=== PATIENT | male | born 1940 | race Caucasian/White ===

== ENCOUNTER 2017-12-31 16:38 | Observation (INO) | payer OTHER ==
[2017-12-31 17:43] LABS: Absolute Lymphocytes (CBC) 0.4 K/uL (0.7-4.9); Absolute Monocytes 0.4 K/uL (0.1-1.3); Absolute Neutrophil 14.3 K/uL (1.8-8.0); Basophils % 0.3 % (0-1.3); Eosinophils % 0.1 % (0-4.4); Lymphocytes % 2.5 % (15.3-44.8); MCH 29.1 pg (27.0-35.0); MCV 89.2 fL (80-100); MPV 8.8 fL (7.6-11.3); Monocytes % 2.9 % (3.3-12.3); RBC Red Blood Cell Count 5.05 M/uL (4.33-5.43)
[2017-12-31 17:50] LABS: Urine Blood 3+ (NEG); Urine Glucose NEGATIVE (NEG); Urine Protein 3+ (NEG); Urine Specific Gravity 1.025 (1.005-1.030); Urine pH 6.5 (5.0-7.0)
[2017-12-31 18:07] LABS: Blood Morphology Comment NOT SEEN (NOT SEEN); Platelet Estimate ADEQ; Urine White Blood Cell Casts OK
--- NOTE | 2017-12-31 18:21 | RAD REPORT ---
EXAM DESCRIPTION: CT - Stone Protocol - 12/31/2017 5:44 pm CLINICAL HISTORY: Abdominal pain. Right flank pain COMPARISON: May 2017 TECHNIQUE: Computed axial tomography of the abdomen pelvis was obtained without oral or IV contrast. Lack of IV and oral contrast limits evaluation of solid organs, bowel, and vessels. Coronal reformat baldemar images were obtained and reviewed. All CT scans are performed using dose optimization technique as appropriate and may include automated exposure control or mA/KV adjustment according to patient size. FINDINGS: Bilateral hydronephrosis has worsened since the prior exam and is moderate to marked. Bila teral renal cysts are unchanged. The dilatation of the ureters has worsened. The bladder has been res ected. 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 The liver, spleen, pancreas and adrenals appear grossly normal There is no evidence of diverticulitis. Increased density within the appendix probably represents con trast. There is no stranding within the adjacent fat. IMPRESSION: Progression in [id number] bilateral hydroureter and hydronephrosis. The dilated ureters extend through the right anterior abdominal wall into an ileal conduit
[2017-12-31] MEDS ORDERED: MORPHINE 4 MG/ML SYR ONE (18:24)
[2017-12-31] MEDS ORDERED: CEFTRIAXONE/SWI 1gm 1 GM/10 ML SYR ONE (18:25)
[2017-12-31] MEDS ORDERED: ONDANSETRON 4 MG/2 ML VIAL ONE (18:25)
--- NOTE | 2017-12-31 19:18 | ER ---
Nurse's Notes [facility] Name: Len Starkey Age: 77 yrs Sex: Male : 1940 Arrival Date: 12/31/2017 Time: 16:40 Bed External Waiting Private MD: Omega Sparks V Diagnosis: Abdominal pain. Bilateral hydronephrosis. Urinary tract infection Presentation: 12/31 16:43 Presenting complaint: Patient states: I have a urostomsy and I am having abd pain la1 radiating around my right side to my back. Transition of care: patient was not received from another setting of care. Onset of symptoms was December 31, 2017. Care prior to arrival: None. 16:43 Method Of Arrival: Ambulatory la1 16:43 Acuity: DAVID 3 la1 Historical: - Allergies: 16:44 Flagyl; la1 16:44 Gentamicin; la1 16:44 Bactrim; la1 - PSHx: 16:44 urostomy; la1 - Immunization history:: Adult Immunizations up to date. - Social history:: Smoking status: Patient/guardian denies using tobacco. Screenin:30 Abuse screen: Denies threats or abuse. Denies injuries from another. Nutritional jl7 screening: No deficits noted. Tuberculosis screening: No symptoms or risk factors identified. Fall Risk IV access (20 points). Total Andrews Fall Scale indicates No Risk (0-24 pts). Assessment: 17:30 General: Appears in no apparent distress. uncomfortable, Behavior is calm, cooperative, jl7 appropriate for age. Pain: Complains of pain in right lower quadrant Pain radiates to posterior aspect of right lateral abdomen Pain currently is 8 out of 10 on a pain scale. Pain began 3 hours ago. Is intermittent. Neuro: Level of Consciousness is awake, alert, obeys commands, Oriented to person, place, time, situation. Cardiovascular: Patient's skin is warm and dry. Respiratory: Airway is patent Respiratory effort is even, unlabored, Respiratory pattern is regular, symmetrical. GI: Bowel sounds present X 4 quads. Abd is soft and non tender X 4 quads. : Urine is cloudy, blood tinged. EENT: No signs and/or symptoms were reported regarding the EENT system. Derm: Skin is pink, warm \T\ dry. 18:00 Reassessment: Pt requesting pain meds, provider notified, see MAR for orders. jl7 18:52 Reassessment: MD Hebert ID #[id number]. jl7 19:13 Reassessment: Dr. Sparks at bedside discussing plan of care with patient. ea 19:21 General: Appears in no apparent distress. Behavior is calm, cooperative, appropriate ea for age. Pain: Complains of pain in right lower quadrant Pain currently is 2 out of 10 on a pain scale. Neuro: Level of Consciousness is awake, alert, obeys commands, Oriented to person, place, time, situation. Cardiovascular: Patient's skin is warm and dry. Respiratory: Airway is patent Respiratory effort is even, unlabored, Respiratory pattern is regular, symmetrical, Breath sounds are clear bilaterally. GI: Bowel sounds present X 4 quads. Abd is soft and non tender X 4 quads. Derm: Skin is pink, warm \T\ dry. 20:00 Reassessment: Patient and/or family updated on plan of care and expected duration. Pain ea level reassessed. Patient is alert, oriented x 3, equal unlabored respirations, skin warm/dry/pink. 21:00 Reassessment: Patient and/or family updated on plan of care and expected duration. Pain ea level reassessed. Patient is alert, oriented x 3, equal unlabored respirations, skin warm/dry/pink. 22:10 Reassessment: Patient and/or family updated on plan of care and expected duration. Pain ea level reassessed. Patient is alert, oriented x 3, equal unlabored respirations, skin warm/dry/pink. Vital Signs: 16:44 BP 140 / 78; Pulse 58; Resp 16; Temp 97.4(TE); Pulse Ox 100% on R/A; Weight 73.94 kg; la1 Height 5 ft. 10 in. (177.80 cm); 17:30 BP 156 / 87; Pulse 66; Resp 18 S; Pulse Ox 100% on R/A; jl7 18:29 BP 137 / 92; Pulse 56; Resp 16 S; Pulse Ox 97% on R/A; jl7 18:53 BP 137 / 92; Pulse 68; Resp 16 S; Pulse Ox 99% on R/A; jl7 19:15 BP 140 / 68; Pulse 70; Resp 18; Pulse Ox 99% ; ea 20:55 BP 138 / 60; Pulse 70; Resp 18 S; Pulse Ox 99% ; ea 21:15 BP 140 / 68; Pulse 60; Resp 18 S; Pulse Ox 98% on R/A; Pain 0/10; ea 22:00 BP 132 / 70; Pulse 60; Resp 18 S; Pulse Ox 99% on R/A; ea 16:44 Body Mass Index 23.39 (73.94 kg, 177.80 cm) la1 ED Course: 16:40 Patient arrived in ED. as 16:40 Omega Sparks MD is Private Physician. as 16:41 Brian Robledo MD is Attending Physician. kdr 16:43 Triage completed. la1 16:45 Arm band placed on left wrist. la1 16:49 Sherrell Shin, TAYLOR is Primary Nurse. jl7 17:30 Patient has correct armband on for positive identification. Bed in low position. Call jl7 light in reach. Side rails up X 1. Pulse ox on. NIBP on. Warm blanket given. 17:30 Inserted saline lock: 20 gauge in right antecubital area, using aseptic technique. jl7 Blood collected. 17:44 CT Stone Protocol In Process Unspecified. EDMS 17:44 CT completed. Patient tolerated procedure well. Patient moved back from CT. bq 19:01 Attending Physician role handed off by Brian Robledo MD pkl 19:01 Jeffrey Burrell MD is Attending Physician. pkl 19:15 Omega Sparks MD is Hospitalizing Provider. pkl 21:30 No provider procedures requiring assistance completed. Patient admitted, IV remains in ea place. Administered Medications: 18:03 Drug: Zofran 4 mg Route: IVP; Site: right antecubital; jl7 19:24 Follow up: Response: No adverse reaction ea 18:05 Drug: Rocephin - (cefTRIAXone) 1 grams Route: IVPB; Infused Over: 30 mins; Site: right jl7 antecubital; 04 01:00 Follow up: Response: No adverse reaction ea 01:11 Follow up: Response: No adverse reaction; IV Status: Completed infusion ea 04 18:10 Drug: morphine 4 mg Route: IVP; Site: right antecubital; jl7 19:24 Follow up: Response: Marked relief of symptoms ea Outcome: 19:18 Decision to Hospitalize by Provider. pkl 21:30 Admitted to Med/surg accompanied by tech, via wheelchair, room 414, Report called to ea receiving nurse 21:30 Condition: stable 22:15 Patient left the ED. ea Signatures: Dispatcher [employer] EDMS Jeffrey Burrell MD MD pkl Rittger, Kevin, MD MD kdr Quilty, Betty bq Martinez, Amelia as Attema, Lee RN RN la1 Sherrell Shin RN RN jl7 Tara Bonilla RN RN alexa Corrections: (The following items were deleted from the chart) 0402 04:04 01:13 Patient left the ED. alexa ea
--- NOTE | 2017-12-31 19:18 | EDPHYS ---
Physician Documentation [facility] Name: Len Starkey Age: 77 yrs Sex: Male : 1940 Arrival Date: 12/31/2017 Time: 16:40 Bed External Waiting Private MD: Omega Sparks V ED Physician Jeffrey Burrell HPI: 12/31 17:14 This 77 yrs old Male presents to ER via Ambulatory with complaints of kdr Abdominal Pain. 17:14 The patient presents with abdominal pain Right Lower quadrant and right flank radiating kdr directly back to his back. 17:17 Onset: The symptoms/episode began/occurred today, 3 hour(s) ago. The symptoms radiate kdr to right back. Associated signs and symptoms: Pertinent positives: nausea and vomiting, Became diaphoretic and then vomited and felt better. The patient does not specifically link the right sided pain to this n/v, Pertinent negatives: shortness of breath. The symptoms are described as achy, crampy, dull, vague, waxing/waning, has lasted longer today than ususal. Modifying factors: The symptoms are alleviated by nothing, the symptoms are aggravated by nothing. Severity of pain: At its worst the pain was mild moderate just prior to arrival, in the emergency department the pain is unchanged. The patient has not experienced similar symptoms in the past. The patient has been recently seen by a physician: Dr. Sparks Was given muscle relaxers but these have not had any effect on his discomfort. Historical: - Allergies: 16:44 Flagyl; la1 16:44 Gentamicin; la1 16:44 Bactrim; la1 - PSHx: 16:44 urostomy; la1 - Immunization history:: Adult Immunizations up to date. - Social history:: Smoking status: Patient/guardian denies using tobacco. ROS: 17:17 Constitutional: Negative for fever, chills, and weight loss, Eyes: Negative for injury, kdr pain, redness, and discharge, ENT: Negative for injury, pain, and discharge, Neck: Negative for injury, pain, and swelling, Cardiovascular: Negative for chest pain, palpitations, and edema, Respiratory: Negative for shortness of breath, cough, wheezing, and pleuritic chest pain, Back: Negative for injury and pain, : Negative for injury, bleeding, discharge, and swelling, MS/Extremity: Negative for injury and deformity, Skin: Negative for injury, rash, and discoloration, Neuro: Negative for headache, weakness, numbness, tingling, and seizure activity. Psych: Negative for depression, anxiety, suicide ideation, homicidal ideation, and hallucinations, Allergy/Immunology: Negative for hives, rash, and allergies, Endocrine: Negative for neck swelling, polydipsia, polyuria, polyphagia, and marked weight changes, Hematologic/Lymphatic: Negative for swollen nodes, abnormal bleeding, and unusual bruising. 17:17 Abdomen/GI: Positive for Negative for diarrhea, constipation, abdominal cramps, abdominal distension, anorexia, dysphagia, hematemesis, black/tarry stool, rectal pain, rectal bleeding, bowel incontinence. Exam: 17:17 Constitutional: This is a well developed, well nourished patient who is awake, alert, kdr and in no acute distress. Head/Face: Normocephalic, atraumatic. Eyes: Pupils equal round and reactive to light, extra-ocular motions intact. Lids and lashes normal. Conjunctiva and sclera are non-icteric and not injected. Cornea within normal limits. Periorbital areas with no swelling, redness, or edema. Neck: Trachea midline, no thyromegaly or masses palpated, and no cervical lymphadenopathy. Supple, full range of motion without nuchal rigidity, or vertebral point tenderness. No Meningismus. Chest/axilla: Normal chest wall appearance and motion. Nontender with no deformity. No lesions are appreciated. Cardiovascular: Regular rate and rhythm with a normal S1 and S2. No gallops, murmurs, or rubs. Normal PMI, no JVD. No pulse deficits. Respiratory: Lungs have equal breath sounds bilaterally, clear to auscultation and percussion. No rales, rhonchi or wheezes noted. No increased work of breathing, no retractions or nasal flaring. Back: No spinal tenderness. No costovertebral tenderness. Full range of motion. Skin: Warm, dry with normal turgor. Normal color with no rashes, no lesions, and no evidence of cellulitis. MS/ Extremity: Pulses equal, no cyanosis. Neurovascular intact. Full, normal range of motion. Neuro: Awake and alert, GCS 15, oriented to person, place, time, and situation. Cranial nerves II-XII grossly intact. Motor strength 5/5 in all extremities. Sensory grossly intact. Cerebellar exam normal. Normal gait. Psych: Awake, alert, with orientation to person, place and time. Behavior, mood, and affect are within normal limits. 17:17 Abdomen/GI: Inspection: Urostomy appliance affixed to RLQ with clear urine draining. No abdominal tenderness. Vital Signs: 16:44 BP 140 / 78; Pulse 58; Resp 16; Temp 97.4(TE); Pulse Ox 100% on R/A; Weight 73.94 kg; la1 Height 5 ft. 10 in. (177.80 cm); 17:30 BP 156 / 87; Pulse 66; Resp 18 S; Pulse Ox 100% on R/A; jl7 18:29 BP 137 / 92; Pulse 56; Resp 16 S; Pulse Ox 97% on R/A; jl7 18:53 BP 137 / 92; Pulse 68; Resp 16 S; Pulse Ox 99% on R/A; jl7 19:15 BP 140 / 68; Pulse 70; Resp 18; Pulse Ox 99% ; ea 20:55 BP 138 / 60; Pulse 70; Resp 18 S; Pulse Ox 99% ; ea 21:15 BP 140 / 68; Pulse 60; Resp 18 S; Pulse Ox 98% on R/A; Pain 0/10; ea 22:00 BP 132 / 70; Pulse 60; Resp 18 S; Pulse Ox 99% on R/A; ea 16:44 Body Mass Index 23.39 (73.94 kg, 177.80 cm) la1 MDM: 19:14 Data reviewed: vital signs, nurses notes, lab test result(s), radiologic studies, CT pkl scan. ED course: Talked to Dr. Sparks, to admit here. 19:18 Patient medically screened. pkl 12/31 17:13 Order name: CBC with Diff; Complete Time: 18:25 kdr 12/31 17:13 Order name: Chem 7; Complete Time: 18:01 kdr 12/31 17:44 Order name: CBC Smear Scan; Complete Time: 18:25 EDMS 12/31 17:49 Order name: Urine Dipstick--Ancillary (enter results); Complete Time: 18:01 ms 12/31 19:32 Order name: Basic Metabolic Panel EDMS 12/31 19:32 Order name: Basic Metabolic Panel EDMS 12/31 17:13 Order name: Urine Dipstick-Ancillary (obtain specimen); Complete Time: 18:01 kdr 12/31 17:13 Order name: CT Stone Protocol; Complete Time: 18:25 kdr 12/31 19:32 Order name: NPO EDMS 12/31 19:32 Order name: CBC with Automated Diff EDMS 12/31 19:32 Order name: CBC with Automated Diff EDMS Administered Medications: 18:03 Drug: Zofran 4 mg Route: IVP; Site: right antecubital; jl7 19:24 Follow up: Response: No adverse reaction ea 18:05 Drug: Rocephin - (cefTRIAXone) 1 grams Route: IVPB; Infused Over: 30 mins; Site: right jl7 antecubital; 01/01 01:00 Follow up: Response: No adverse reaction ea 01:11 Follow up: Response: No adverse reaction; IV Status: Completed infusion ea 12/31 18:10 Drug: morphine 4 mg Route: IVP; Site: right antecubital; 7 19:24 Follow up: Response: Marked relief of symptoms ea Disposition: 12/31/17 19:18 Hospitalization ordered by Omega Sparks for Observation. Preliminary diagnosis is Abdominal pain. Bilateral hydronephrosis. Urinary tract infection. - Bed requested for Telemetry/MedSurg (Inpatient). - Status is Observation. ea - Condition is Stable. - Problem is new. - Symptoms are unchanged. UTI on Admission? Yes Signatures: Dispatcher [employer] EDDE Wilma Olivo RN RN kl Lam, Pin, MD MD pkl Rittger, Kevin, MD MD kdr Attema, Lee, RN RN la1 Leal, Jahala, RN RN jl7 Tara Bonilla RN RN ea
[2017-12-31] MEDS ORDERED: ACETAMINOPHEN 500 MG TAB PO PRN (19:28)
[2017-12-31] MEDS ORDERED: PROMETHAZINE 25 MG/ML VIAL IV PRN (19:30)
[2017-12-31] MEDS ORDERED: D5 0.45 NS 1,000 ML IV SCH (20:00)
[2017-12-31] MEDS ORDERED: CIPROFLOXACIN 400mg IV 400 MG/200 ML BAG IV SCH (21:00)
--- NOTE | 2017-12-31 21:14 | P.HP ---
Certification for Inpatient Patient admitted to: Observation With expected LOS: <2 Midnights Practitioner: I am a practitioner with admitting privileges, knowledge of patient current condition, hospital course, and medical plan of care. Services: Services provided to patient in accordance with Admission requirements found in Title 42 Section 412.3 of the Code of Federal Regulations Patient History Date of Service: 12/31/17 Reason for admission: LOWER ABDOMEN PAIN History of Present Illness: MR. RAMIREZ HAS R LQ ABDOMEN PAIN. HE HAS HAD THIS OFF AND ON FOR MONTHS. HE HAS BEEN TO [facility] WHO HAS PLACED ILEOSTOMY FOR HIM YEARS AGO FOR BLADDER CANCER SURGERY. NOW LATELY HE HAS MORE AND MORE PAIN AROUND THE ILEOSTOMY. PAIN IS MORE INTENSE NOW THAT HE IS HERE NOW. HE WANTS TO BE TRANSFERRED TO [place] BUT THAT IS GOING TO BE NEXT TO IMPOSSIBLE FROM OUR PAST EXPEIREINCE. HE DOES NOT NEED TO BE TRANSFERRED. WE WILL CONTROL THE INFECTION FROM POST OBST UROPATHY. HE WILL CALL J [facility] TOMORROW AND TALK TO HIS UROLOGY TEAM AND ONCE STABLE IN DAY OR TWO WE WILL DC HON ABX. HE IS AGREEABLE TO THIS PLAN. Allergies gentamicin [Gentamicin] Allergy (Verified 02/17/14 22:28) rapid heart beat metronidazole [From Flagyl] Allergy (Unverified 01/01/15 02:20) Unknown Home Medications: Cranberry 500 mg PO DAILY 04/23/13 Gabapentin [Neurontin*] 300 mg PO TID 04/23/13 Polyethylene Glycol 3350 [Miralax] 17 gm PO SEECOM PRN 04/23/13 Dexlansoprazole [Dexilant] 60 mg PO BREAKFAST 02/17/14 Lactobacillus Acidophilus [Acidophilus] 1 tab PO DAILY 02/17/14 Simvastatin [Zocor*] 1 tab PO BEDTIME 02/17/14 Synthroid 50mcg 1 tab PO DAILY 02/17/14 Cefepime [Maxipime*] 2 gm IJ Q12HR #20 vial 02/21/14 0.9 % Sodium Chloride [Saline Flush] 10 ml IV BID #0 disp.syrin 02/25/14 0.9 % Sodium Chloride [Saline Flush] 20 ml IV PRN PRN #0 disp.syrin 02/25/14 - Past Medical/Surgical History Diabetic: No -: GERD -: A-fib with ablation -: UTI's -: Bladder CA -: Hypothyroid -: gall bladder removal -: urostomy - 1989 -: hernia repair -: ileal conduit - Social History Alcohol use: No CD- Drugs: No Caffeine use: No Review of Systems 10-point ROS is otherwise unremarkable General: Weakness, Malaise Physical Examination - Physical Exam General: Alert, Mild distress HEENT: Atraumatic, PERRLA, Mucous membr. moist/pink, EOMI, Sclerae nonicteric Neck: Supple, 2+ carotid pulse no bruit, No LAD, Without JVD or thyroid abnormality Respiratory: Clear to auscultation bilaterally, Normal air movement Cardiovascular: Regular rate/rhythm, Normal S1 S2 Gastrointestinal: Normal bowel sounds, No ascites, No tenderness, Other ( ILEOSTOMY SITE IS NOT TENDER. 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 I BELIEVE AND HE KNOWS THAT WE NEED SURGICAL CORRECTION OF THE FAILING ILEOSTOMY NOW. I EXPLAINED TO HIM AND FRIENDS THAT WHENEVER THERE IS URINARY RETENTION , IT WILL CAUSE INFECTION EVENTUALLY. - Advance Directives Does patient have a Living Will: No Does patient have a Durable POA for Healthcare: Yes
[2017-12-31 22:07] VITALS: BMI 22.8
[2017-12-31] MEDS: D5 0.45 NS 1,000 ML IV SCH (22:12)
[2017-12-31] MEDS: MORPHINE 4 MG/ML SYR IV PRN (23:05)
[2018-01-01 05:17] LABS: Absolute Lymphocytes (CBC) 0.9 K/uL (0.7-4.9); Absolute Monocytes 1.3 K/uL (0.1-1.3); Absolute Neutrophil 15.1 K/uL (1.8-8.0); Basophils % 0.2 % (0-1.3); Hematocrit 41.2 % (39.6-49.0); Lymphocytes % 5.4 % (15.3-44.8); MCV 88.6 fL (80-100); MPV 9.2 fL (7.6-11.3); Monocytes % 7.5 % (3.3-12.3); RBC Red Blood Cell Count 4.66 M/uL (4.33-5.43)
[2018-01-01 05:25] LABS: Potassium 4.9 mEq/L (3.6-5.0)
[2018-01-01 06:15] LABS: Blood Morphology Comment NOT SEEN (NOT SEEN); Platelet Estimate ADEQ
[2018-01-01] MEDS ORDERED: CODEINE 30MG/APAP 300MG TAB PO PRN (06:54)
[2018-01-01] MEDS: BACITRACIN OPTH OINT TUBE EACH EYE SCH (09:00)
[2018-01-01] MEDS: clonazePAM 0.5 MG TAB PO SCH (09:00)
[2018-01-01] MEDS: NYSTATIN PWDR 100000 UNIT/GM TOP SCH ×2 (09:00→20:19)
[2018-01-01] MEDS: LACTOBACILLUS/ACIDOPHILUS TAB PO SCH (10:08)
[2018-01-01] MEDS: MULTIVIT W/ MINERAL TAB PO SCH (10:08)
[2018-01-01] MEDS: PANTOPRAZOLE 40MG TABLET PO SCH (10:08)
[2018-01-01] MEDS: LORATADINE 10 MG TAB PO SCH (10:08)
[2018-01-01] MEDS: LEVOTHYROXINE SOD 0.05 MG TABLET PO SCH (10:41)
[2018-01-01] MEDS: POLYETHYL GLY 3350 17 GM/DOSE PO PRN (11:06)
[2018-01-01] MEDS: PIPER/TAZO/NS 2.25gm 2.25 GM/50 ML BAG IV SCH ×3 (12:30→23:45)
--- NOTE | 2018-01-01 13:09 | P.PN ---
Subjective Date of Service: 01/01/18 Chief Complaint: TENDER ILEOSTOMY Subjective: Improving (FEELS A LOT BETTER.) Review of Systems 10-point ROS is otherwise unremarkable Physical Examination - Vital Signs Temperature: 97.0 F Blood Pressure: 119/67 Pulse: 66 Respirations: 16 Pulse Ox (%): 96 - Physical Exam General: Alert, In no apparent distress HEENT: Atraumatic, PERRLA, EOMI Neck: Supple, JVD not distended Respiratory: Clear to auscultation bilaterally, Normal air movement Cardiovascular: Regular rate/rhythm, Normal S1 S2 Gastrointestinal: Normal bowel sounds, No tenderness Musculoskeletal: No tenderness Integumentary: No rashes, Other (TENDER IELOSTOMY LOCATION.) Neurological: Normal speech, Normal tone, Normal affect Lymphatics: No axilla or inguinal lymphadenopathy - Studies Laboratory Data (last 24 hrs) 12/31/17 17:33: Sodium 139, Potassium 4.0, BUN 14, Creatinine 1.20, Glucose 134 H 12/31/17 17:33: WBC 15.2 H, Hgb 14.7, Hct 45.0, Plt Count 195 Medications List Reviewed: Yes Assessment And Plan - Current Problems (Diagnosis) (1) Pyelonephritis Onset Date: 01/01/18 Current Visit: Yes Status: Acute Plan: IV CIPRO STABLE FOR NOW WE CALLED [facility] AND WAITING FOR THEIR REPLY. (2) Obstructive and reflux uropathy Onset Date: 01/01/18 Current Visit: Yes Status: Chronic Plan: HE HAS SEEN UROLOGIST AT [facility] WHO HAD DECIDED TO WATCH HIM. I BELIEVE AND HE KNOWS THAT WE NEED SURGICAL CORRECTION OF THE FAILING ILEOSTOMY NOW. I EXPLAINED TO HIM AND FRIENDS THAT WHENEVER THERE IS URINARY RETENTION , IT WILL CAUSE INFECTION EVENTUALLY.
[2018-01-01] MEDS: MORPHINE 4 MG/ML SYR IV PRN (13:59)
[2018-01-01] MEDS: D5 0.45 NS 1,000 ML IV SCH (17:40)
[2018-01-01] MEDS ORDERED: ATORVASTATIN 10 MG TAB PO SCH (21:00)
[2018-01-01 21:47] VITALS: O2SAT 96
[2018-01-02 02:32] LABS: Urine Appearance TURBID; Urine Bilirubin NEGATIVE (NEG); Urine Blood 3+ (NEG); Urine Color YELLOW; Urine Glucose NEGATIVE (NEG); Urine Protein 1+ (NEG); Urine Specific Gravity 1.015 (1.005-1.030); Urine Urobilinogen 0.2 mg/dL (0.2-1.0); Urine pH 5.5 (5.0-7.0)
[2018-01-02 03:20] LABS: Urine Bacteria <20 /HPF (NONE SEEN); Urine Culture Reflex Order REFLEXED; Urine RBC 20-50 /HPF (NONE SEEN)
[2018-01-02] MEDS: LEVOTHYROXINE SOD 0.05 MG TABLET PO SCH (05:23)
[2018-01-02] MEDS: PIPER/TAZO/NS 2.25gm 2.25 GM/50 ML BAG IV SCH ×2 (05:24→13:15)
[2018-01-02 07:56] LABS: Absolute Lymphocytes (CBC) 0.7 K/uL (0.7-4.9); Absolute Monocytes 0.9 K/uL (0.1-1.3); Absolute Neutrophil 8.9 K/uL (1.8-8.0); Basophils % 0.5 % (0-1.3); Eosinophils % 1.7 % (0-4.4); Hematocrit 40.6 % (39.6-49.0); Lymphocytes % 6.6 % (15.3-44.8); MCV 89.6 fL (80-100); MPV 9.3 fL (7.6-11.3); Monocytes % 8.3 % (3.3-12.3); RBC Red Blood Cell Count 4.53 M/uL (4.33-5.43)
[2018-01-02 07:58] LABS: Potassium 4.6 mEq/L (3.6-5.0)
[2018-01-02] MEDS: clonazePAM 0.5 MG TAB PO SCH (09:00)
[2018-01-02] MEDS: NYSTATIN PWDR 100000 UNIT/GM TOP SCH (09:00)
[2018-01-02] MEDS: BACITRACIN OPTH OINT TUBE EACH EYE SCH (09:00)
[2018-01-02] MEDS: POLYETHYL GLY 3350 17 GM/DOSE PO PRN (09:28)
[2018-01-02] MEDS: PANTOPRAZOLE 40MG TABLET PO SCH (09:29)
[2018-01-02] MEDS: LORATADINE 10 MG TAB PO SCH (09:29)
[2018-01-02] MEDS: LACTOBACILLUS/ACIDOPHILUS TAB PO SCH (09:29)
[2018-01-02] MEDS: MULTIVIT W/ MINERAL TAB PO SCH (09:29)
--- NOTE | 2018-01-02 12:47 | P.DS ---
Admission Date: 01/01/18 Discharge Date: 01/02/18 Disposition: ROUTINE DISCHARGE Discharge Condition: FAIR Reason for Admission: TENDER ILEOSTOMY - Problems (1) Pyelonephritis Onset Date: 01/01/18 Current Visit: Yes Status: Acute (2) Obstructive and reflux uropathy Onset Date: 01/01/18 Current Visit: Yes Status: Chronic Brief History of Present Illness: MR. RAMIREZ HAS R LQ ABDOMEN PAIN. HE HAS HAD THIS OFF AND ON FOR MONTHS. HE HAS BEEN TO [facility] WHITMAN WHO HAS PLACED ILEOSTOMY FOR HIM YEARS AGO FOR BLADDER CANCER SURGERY. NOW LATELY HE HAS MORE AND MORE PAIN AROUND THE ILEOSTOMY. PAIN IS MORE INTENSE NOW THAT HE IS HERE NOW. HE WANTS TO BE TRANSFERRED TO [place] BUT THAT IS GOING TO BE NEXT TO IMPOSSIBLE FROM OUR PAST EXPEIREINCE. HE DOES NOT NEED TO BE TRANSFERRED. WE WILL CONTROL THE INFECTION FROM POST OBST UROPATHY. HE WILL CALL [facility] TOMORROW AND TALK TO HIS UROLOGY TEAM AND ONCE STABLE IN DAY OR TWO WE WILL DC HON ABX. HE IS AGREEABLE TO THIS PLAN. MR RAMIREZ IS DOING WELL. HIS WBC COUNT IS NORMAL. HE WILL FU WITH MD WHITMAN UROLOGIST NEXT MONDAY. I TALKED TO HIM. PATIENT IS AWARE. Vital Signs/Physical Exam: Temp Pulse Resp BP Pulse Ox 99.6 F 65 20 136/71 97 01/02/18 08:00 01/02/18 08:00 01/02/18 08:00 01/02/18 08:00 01/02/18 08:00 Laboratory Data at Discharge: WBC 10.7 K/uL (4.3-10.9) D 01/02/18 07:15 Hgb 13.6 g/dL (13.6-17.9) 01/02/18 07:15 Hct 40.6 % (39.6-49.0) 01/02/18 07:15 Plt Count 173 K/uL (152-406) 01/02/18 07:15 Sodium 138 mEq/L (135-145) 01/02/18 07:15 Potassium 4.6 mEq/L (3.6-5.0) 01/02/18 07:15 BUN 14 mg/dL (6-20) 01/02/18 07:15 Creatinine 1.13 mg/dL (0.61-1.24) 01/02/18 07:15 Glucose 118 mg/dL (65-120) 01/02/18 07:15 Home Medications: Polyethylene Glycol 3350 [Miralax] 17 gm PO DAILY PRN 04/23/13 Dexlansoprazole [Dexilant] 60 mg PO BREAKFAST 02/17/14 Lactobacillus Acidophilus [Acidophilus] 1 tab PO DAILY 02/17/14 Acetaminophen with Codeine [Acetaminophen-Cod #3 Tablet] 1 tab PO DAILY PRN 10/19 Ascorbic Acid [Vitamin C] 300 mg PO DAILY 12/31/17 Bacitracin [Bacitracin] 1 appl EACH EYE DAILY 12/31/17 Clonazepam [Klonopin*] 0.5 mg PO DAILY 12/31/17 Levothyroxine [Synthroid] 50 mcg PO [id number] 12/31/17 Loratadine [Claritin] 10 mg PO DAILY 12/31/17 Nystatin Powder [Mycostatin (Powder)*] 1 appl TOP BID 12/31/17 Vit/Iron Fumarate/FA [ Tablet] 1 each PO DAILY 12/31/17 Simvastatin [Simvastatin] 20 mg PO DAILY 12/31/17 Ciprofloxacin HCl [Cipro 250 MG Tablet*] 250 mg PO BID #20 tab 01/02/18 New Medications: Ciprofloxacin HCl [Cipro 250 MG Tablet*] 250 mg PO BID #20 tab
[2018-01-02 13:50] VITALS: BP 142/71; TEMP 98.9
== END 2018-01-02 14:58 | disposition home or self-care (01) ==
LOC: ER 16:38 → ERHOLD 19:26 → 2ND 20:18 → INTOOBSV 01-01 14:06 → OBSVTOIN 01-01 14:06
PROVIDERS: ADMIT Internal Medicine; ATTEND Internal Medicine
DX: N10 Acute pyelonephritis; K21.9 Gastro-esophageal reflux disease without esophagitis; N13.9 Obstructive and reflux uropathy, unspecified; E03.9 Hypothyroidism, unspecified; Z88.2 Allergy status to sulfonamides
CPT/HCPCS: 36415 ×2; 74176; 76377; 80048 ×3; 81001; 81003; 85025 ×3; 87040 ×2; 87086; 87088; 96365; 96366; 96375; 99285; G0378 ×2; J0696; J0744; J2405; J2550

== ENCOUNTER 2018-04-23 12:15 | Emergency (ER) | payer OTHER ==
[2018-04-23 15:54] LABS: Absolute Lymphocytes (CBC) 1.2 K/uL (0.7-4.9); Absolute Monocytes 0.5 K/uL (0.1-1.3); Absolute Neutrophil 3.1 K/uL (1.8-8.0); Basophils % 0.7 % (0-1.3); Hematocrit 43.3 % (39.6-49.0); Lymphocytes % 24.4 % (15.3-44.8); MCV 89.9 fL (80-100); MPV 8.9 fL (7.6-11.3); Monocytes % 10.1 % (3.3-12.3); RBC Red Blood Cell Count 4.82 M/uL (4.33-5.43)
[2018-04-23 16:34] LABS: Albumin 4.3 g/dL (3.4-5.0); Bilirubin Direct 0.2 mg/dL (0-0.2); Bilirubin Total 0.5 mg/dL (0.2-1.0); Potassium 4.4 mmol/L (3.5-5.1); Protein, Total 7.8 g/dL (6.4-8.2)
[2018-04-23 16:58] LABS: Urine Blood NEGATIVE (NEG); Urine Glucose NEGATIVE (NEG); Urine Protein NEGATIVE (NEG); Urine pH 6.5 (5.0-7.0)
--- NOTE | 2018-04-23 17:29 | ER ---
Nurse's Notes [facility] Name: Len Starkey Age: 77 yrs Sex: Male : 1940 Arrival Date: 04/23/2018 Time: 12:16 Bed 25 Private MD: Omega Sparks V Diagnosis: Low back pain Presentation: 04/23 12:40 Presenting complaint: Patient states: "I have low back pain in the morning and then hb later in the day it hurts up high. I wear a urine back and have frequent UTIs so it could be that.". Transition of care: patient was not received from another setting of care. Onset of symptoms was April 23, 2018. Risk Assessment: Do you want to hurt yourself or someone else? Patient reports no desire to harm self or others. Initial Sepsis Screen: Does the patient meet any 2 criteria? No. Patient's initial sepsis screen is negative. Does the patient have a suspected source of infection? No. Patient's initial sepsis screen is negative. Care prior to arrival: None. 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 - Social history:: Smoking status: Patient/guardian denies using tobacco. - Ebola Screening: : No symptoms or risks identified at this time. Screenin:23 Abuse screen: Denies threats or abuse. Denies injuries from another. Nutritional kr2 screening: No deficits noted. Tuberculosis screening: No symptoms or risk factors identified. Fall Risk None identified. Assessment: 15:14 General: Appears in no apparent distress. uncomfortable, well groomed, well developed, kr2 well nourished, Behavior is calm, cooperative, appropriate for age. Pain: Complains of pain in lower back Pain currently is 2 out of 10 on a pain scale. at worst was 2 out of 10 on a pain scale. Quality of pain is described as aching, dull, Is continuous, Alleviated by nothing. Neuro: Level of Consciousness is awake, alert, obeys commands, Oriented to person, place, time, situation, Staff Development Manager are equal bilaterally Speech is normal, Facial symmetry appears normal. Cardiovascular: Capillary refill < 3 seconds in bilateral fingers Patient's skin is warm and dry. Respiratory: Airway is patent Respiratory effort is even, unlabored, Respiratory pattern is regular, symmetrical. GI: Abdomen is flat, non-distended. : Denies burning with urination, inability to void. EENT: Oral mucosa is moist. Derm: Skin is intact, is healthy with good turgor, Skin is pink, warm \\T\\ dry. Musculoskeletal: Circulation, motion, and sensation intact. 16:30 Reassessment: Patient appears in no apparent distress at this time. Patient and/or kr2 family updated on plan of care and expected duration. Pain level reassessed. Patient is alert, oriented x 3, equal unlabored respirations, skin warm/dry/pink. 17:48 Reassessment: Patient appears in no apparent distress at this time. Patient and/or kr2 family updated on plan of care and expected duration. Pain level reassessed. Patient is alert, oriented x 3, equal unlabored respirations, skin warm/dry/pink. Vital Signs: 12:43 BP 166 / 86; Pulse 64; Resp 16; Temp 98.6; Pulse Ox 100% on R/A; Pain 5/10; hb 15:00 BP 163 / 74 LA Supine (auto/reg); Pulse 70 MON; Temp 98.8; Pulse Ox 99% on R/A; Pain jp3 3/10; 17:00 BP 156 / 74; Pulse 62; Resp 17; Pulse Ox 100% on R/A; kr2 ED Course: 12:16 Patient arrived in ED. sb2 12:17 Omega Sparks MD is Private Physician. sb2 12:43 Triage completed. hb 12:44 Arm band placed on left wrist. hb 14:50 Side rails up X 1. Warm blanket given. Pillow given. jp3 14:50 Urine collected: Muñoz catheter specimen, clear, reva colored. jp3 15:05 Adriel Fernandes NP is PHCP. pm1 15:05 Eamon Hebert MD is Attending Physician. pm1 15:11 Marie Kahn, TAYLOR is Primary Nurse. kr2 15:30 Inserted saline lock: 20 gauge in right upper arm, using aseptic technique. Blood kr2 collected. 17:49 No provider procedures requiring assistance completed. IV discontinued, intact, kr2 bleeding controlled, No redness/swelling at site. Pressure dressing applied. Administered Medications: No medications were administered Outcome: 17:28 Discharge ordered by MD. pm1 17:50 Discharged to home ambulatory. kr2 17:50 Condition: good 17:50 Discharge instructions given to patient, Instructed on discharge instructions, follow up and referral plans. Demonstrated understanding of instructions, follow-up care. 17:53 Patient left the ED. kr2 Addendum: 04/26/2018 13:13 Addendum: Culture Results: Positive urine culture. Phone call Attempt #1 called patient s s no answer and Left Certified letter sent to listed address for patient. Signatures: Sandra Jane RN RN Adriel Zayas NP BUS ASSISTANT pm1 Rhianna Feliz RN RN hb Reaves, Karey, RN RN kr2 Isabella Linda sb2 Jose Antonio Mcdermott jp3
--- NOTE | 2018-04-23 17:29 | EDPHYS ---
Physician Documentation [facility] Name: Len Starkey Age: 77 yrs Sex: Male : 1940 Arrival Date: 04/23/2018 Time: 12:16 Bed 25 Private MD: Omega Sparks V ED Physician Eamon Hebert HPI: 04/23 16:00 This 77 yrs old Male presents to ER via Ambulatory with complaints of Back pm1 Pain. 16:00 The patient presents with pain that is chronic, with no known mechanism of injury. The pm1 patient has been recently seen at an urgent care, today. Patient with onset of tailbone pain this AM that resolved. He went to a clinic and had a urine sample ordered. Patient was concerned that it might be a UTI but his symptoms do not match his prior UTIs. No fever or flank pain. Patient reports that he has some posterior neck pain that is not new. 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 Patient has aranda Muñoz leg bag. He changed the Muñoz catheter this AM prior to giving a sample to the lab. 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 - Social history:: Smoking status: Patient/guardian denies using tobacco. - Ebola Screening: : No symptoms or risks identified at this time. ROS: 16:00 Constitutional: Negative for fever, chills, and weight loss, Eyes: Negative for injury, pm1 pain, redness, and discharge, ENT: Negative for injury, pain, and discharge, Cardiovascular: Negative for chest pain, palpitations, and edema. 16:00 Respiratory: Negative for shortness of breath, cough, wheezing, and pleuritic chest pain, Abdomen/GI: Negative for abdominal pain, nausea, vomiting, diarrhea, and constipation, Back: Negative for injury and pain, : Negative for injury, bleeding, discharge, and swelling, MS/Extremity: Negative for injury and deformity, Skin: Negative for injury, rash, and discoloration, Neuro: Negative for headache, weakness, numbness, tingling, and seizure. 16:00 Neck: Positive for tenderness, of the posterior cervical area. Exam: 16:00 Constitutional: This is a well developed, well nourished patient who is awake, alert, pm1 and in no acute distress. Head/Face: Normocephalic, atraumatic. 16:00 Chest/axilla: Normal chest wall appearance and motion. Nontender with no deformity. No lesions are appreciated. Cardiovascular: Regular rate and rhythm with a normal S1 and S2. No gallops, murmurs, or rubs. Normal PMI, no JVD. No pulse deficits. Respiratory: Lungs have equal breath sounds bilaterally, clear to auscultation and percussion. No rales, rhonchi or wheezes noted. No increased work of breathing, no retractions or nasal flaring. Abdomen/GI: Soft, non-tender, with normal bowel sounds. No distension or tympany. No guarding or rebound. No evidence of tenderness throughout. Back: No spinal tenderness. No costovertebral tenderness. Full range of motion. Skin: Warm, dry with normal turgor. Normal color with no rashes, no lesions, and no evidence of cellulitis. MS/ Extremity: Pulses equal, no cyanosis. Neurovascular intact. Full, normal range of motion. 16:00 Neck: External neck: is normal, C-spine: vertebral tenderness, is not appreciated, ROM/movement: is normal, Meningeal signs: are not present, Kernig's sign is negative, Brudzinski's sign is negative, nuchal rigidity, is not appreciated. 16:00 Neuro: Orientation: is normal, Mentation: is normal, Motor: moves all fours, Sensation: is normal, no obvious gross deficits. Vital Signs: 12:43 BP 166 / 86; Pulse 64; Resp 16; Temp 98.6; Pulse Ox 100% on R/A; Pain 5/10; hb 15:00 BP 163 / 74 LA Supine (auto/reg); Pulse 70 MON; Temp 98.8; Pulse Ox 99% on R/A; Pain jp3 3/10; 17:00 BP 156 / 74; Pulse 62; Resp 17; Pulse Ox 100% on R/A; kr2 MDM: 15:06 Patient medically screened. pm1 15:32 ED course: Patient does not want any imaging for his neck because it is related to a pm1 chronic condition, degenerative disc disease. Wants to wait to see his PCP to get MRI if determined that it is necessary. Patient without any numbness, tingling or weakness to extermities. 17:05 ED course: Patient with out any fever, abdominal pain, flank pain, or abnormal labs. pm1 Patient likely colonizer. Will await culture results prior to ax therapy if deemed necessary. 17:16 Data reviewed: vital signs. Data interpreted: Pulse oximetry: on room air is 99 %. pm1 Interpretation: normal. Counseling: I had a detailed discussion with the patient and/or guardian regarding: the historical points, exam findings, and any diagnostic results supporting the discharge/admit diagnosis. 04/23 12:29 Order name: Urine Culture [facility] 04/23 12:29 Order name: Urine Microscopic Only [facility] 04/23 15:32 Order name: Basic Metabolic Panel; Complete Time: 17:02 pm1 04/23 15:32 Order name: CBC with Diff; Complete Time: 17:02 pm1 04/23 15:32 Order name: Hepatic Function; Complete Time: 17:02 pm1 04/23 16:41 Order name: Urine Dipstick--Ancillary (enter results); Complete Time: 17:02 ag 04/23 12:29 Order name: Urine Dipstick-Ancillary (obtain specimen); Complete Time: 15:18 snw 04/23 15:32 Order name: IV Saline Lock; Complete Time: 15:42 pm1 04/23 15:32 Order name: Labs collected and sent; Complete Time: 15:42 pm1 Administered Medications: No medications were administered Disposition: 04/24 09:42 Co-signature as Attending Physician, Eamon Hebert MD I agree with the assessment and louis plan of care. Disposition: 04/23/18 17:28 Discharged to Home. Impression: Low back pain. - Condition is Stable. - Discharge Instructions: Back Pain, Adult, Chronic Back Pain, Back Injury Prevention, [id number]. - Medication Reconciliation Form, Thank You Letter, Antibiotic Education, Prescription Opioid Use form. - Follow up: Emergency Department; When: As needed; Reason: Worsening of condition. Follow up: Private Physician; When: 2 - 3 days; Reason: Recheck today's complaints, Continuance of care, Re-evaluation by your physician. - Problem is new. - Symptoms have improved. Signatures: Dispatcher [employer] [facility] Eamon Hebert MD MD cha Therrien, Shelly, HOT FRAME TENDER-C HOT FRAME TENDER-Csnw Adriel Fernandes, ANIVAL [employer]IP ENGINES OPERATING ENGINEER pm1 Rhianna Feliz, RN RN Marie Kahn RN RN kr2 Corrections: (The following items were deleted from the chart) 04/23 17:01 12:30 UA MICROSCOPIC+U.LAB.BRZ ordered. [facility] 17:53 17:28 04/23/2018 17:28 Discharged to Home. Impression: Low back pain. Condition is kr2 Stable. Forms are Medication Reconciliation Form, Thank You Letter, Antibiotic Education, Prescription Opioid Use. Follow up: Emergency Department; When: As needed; Reason: Worsening of condition. Follow up: Private Physician; When: 2 - 3 days; Reason: Recheck today's complaints, Continuance of care, Re-evaluation by your physician. Problem is new. Symptoms have improved. pm1
[2018-04-23 18:16] LABS: Urine Bacteria <20 /HPF (NONE SEEN); Urine RBC <5 /HPF (NONE SEEN)
[2018-04-23 18:17] LABS: Urine Culture Reflex Order NOT NEEDED
[2018-04-23 19:13] VITALS: TEMP 98.8
[2018-04-23 19:14] VITALS: BP 156/74; O2SAT 100
== END 2018-04-23 17:53 | disposition home or self-care (01) ==
LOC: ER 12:15
DX: M54.5 Low back pain (principal); Z88.1 Allergy status to other antibiotic agents; Z88.3 Allergy status to other anti-infective agents
CPT/HCPCS: 36415; 80048; 80076; 81003; 81015; 85025; 87077; 87086; 87088; 87186; 99283

== ENCOUNTER → 2023-12-25 | Emergency (ER) | payer OTHER ==
--- OUTSIDE RECORDS SUMMARY | 2023-12-25 06:56 | XMS REPORT | Continuity of Care Document ---
Author Name Unknown Address [address] [facility] [address]. [address] [place] [id number] [facility] thconnect Address [address] [facility]. [address] [place] [address] Care Team Providers Care Substation Engineer Name Role Phone [phone] Primary Care Physician NISHANT Guthrie Attending Clinician KORI Quiles Attending Clinician Unavailable CASE HICKEY Attending Clinician Nishant Guthrie MD Attending Clinician [phone] Only, Adc Test Attending Clinician Unavailable Doctor Unassigned, [place] Attending Clinician U navailable Pob, [facility] Main Attending Clinician NISHANT Mora Admitting Clinician Nishant Guthrie MD Admitting Clinician [phone] Payers Payer Name Policy Type Policy Number Effective Date Expirati on Date Source [employer] MEDICARE ADV [id number] 1 00:00:00 [employer] MEDICARE PPO [id number] 1 00:00:00 Problems Condition Name Condition Details Condition Category Status Onset Date Resolution Date Last Treatment Date Treating Clinician Comments Source Atrial fibrillati on Atrial fibrillati on Disease Active 2-12 00:00: 00 [facility] Allergies, Adverse Reactions, Alerts Allergy Name Allergy Type Status Severity Reaction(s) Onset Date Inactive Date Treating Clinician Comments Source SULFAMET HOXAZOLE DRUG INGREDI Active Itching 2-12 00:00: 00 MD Idania wesley SULFAMET HOXAZOLE DRUG INGREDI Active Itching 2-12 00:00: 00 MD Idania wesley SULFAMET HOXAZOLE DRUG INGREDI Active Itching 2-12 00:00: 00 MD Idania wesley METRONID AZOLE HCL DRUG INGREDI Active Other-Cmnt 2020-0 2-12 00:00: 00 [facility] GENTAMIC IN DRUG INGREDI Active Palpitations 0 2-12 00:00: 00 [facility] SULFAMET HOXAZOLE DRUG INGREDI Active ITCHING 2020-0 2-12 00:00: 00 [facility] Metronid azole Hcl Propensi ty to adverse reaction s Active Other - See comments 0 2-12 00:00: 00 GI Intoleran ce [facility] SULFAMET HOXAZOLE DRUG INGREDI Active Itching 0 2-12 00:00: 00 MD Idania Horowitzamic in Propensi ty to adverse reaction s Active Other - See comments 0 2-12 00:00: 00 fainting [facility] Sulfamet hoxazole Propensi ty to adverse reaction s Active Itching 0 2 00:00: 00 Bactrim [Sulfamet hoxazole- Trimethop rim] Itching [facility] hand and feet [facility] SULFAMET HOXAZOLE DRUG INGREDI Active Itching 2020-0 2-12 00:00: 00 MD Idania wesley SULFAMET HOXAZOLE DRUG INGREDI Active Itching 2020-0 212 00:00: 00 MD Idania wesley SULFAMET HOXAZOLE DRUG INGREDI Active Itching 2020-0 212 00:00: 00 MD Idania wesley METRONID AZOLE HCL DRUG INGREDI Active Nausea 2016-10 00:00: 00 MD Idania HOROWITZAMIC IN DRUG INGREDI Active Low Palpitations 2016-10 00:00: 00 MD Idania wesley SULFAMET HOXAZOLE -TRIMETH OPRIM DRUG Active Itching 2016-10 00:00: 00 MD Idania wesley METRONID AZOLE HCL DRUG INGREDI Active Nausea 2016-10 00:00: 00 MD Idania HOROWITZAMIC IN DRUG INGREDI Active Low Palpitations 2016-10 00:00: 00 MD Idania wesley SULFAMET HOXAZOLE -TRIMETH OPRIM DRUG Active Itching 2016-10 00:00: 00 MD Idania wesley METRONID AZOLE HCL DRUG INGREDI Active Nausea 2016-10 00:00: 00 MD Idania HOROWITZAMIC IN DRUG INGREDI Active Low Palpitations 2016-10 00:00: 00 MD Idania wesley SULFAMET HOXAZOLE -TRIMETH OPRIM DRUG Active Itching 2016-10 00:00: 00 MD Idania wesley METRONID AZOLE HCL DRUG INGREDI Active Nausea 2016-10 00:00: 00 MD Idania HOROWITZAMIC IN DRUG INGREDI Active Low Palpitations 2016-10 00:00: 00 MD Idania wesley SULFAMET HOXAZOLE -TRIMETH OPRIM DRUG Active Itching 2016-10 00:00: 00 MD Idania wesley METRONID AZOLE HCL DRUG INGREDI Active Nausea 2016-10 00:00: 00 MD Idania HOROWITZAMIC IN DRUG INGREDI Active Low Palpitations 2016-10 00:00: 00 MD Idania wesley SULFAMET HOXAZOLE -TRIMETH OPRIM DRUG Active Itching 2016-10 00:00: 00 MD Idania wesley METRONID AZOLE HCL DRUG INGREDI Active Nausea 2016-10 00:00: 00 MD Idania HOROWITZAMIC IN DRUG INGREDI Active Low Palpitations 2016-10 00:00: 00 MD Idania wesley SULFAMET HOXAZOLE -TRIMETH OPRIM DRUG Active Itching 2016-10 00:00: 00 MD Idania wesley SULFAMET HOXAZOLE -TRIMETH OPRIM DRUG Active Itching 2016-10 00:00: 00 MD Idania wesley METRONID AZOLE HCL DRUG INGREDI Active Nausea 2016-10 00:00: 00 MD Idania wesley GENTAMIC IN DRUG INGREDI Active Low Palpitations 2016-10 00:00: 00 MD Idania wesley SULFAMET HOXAZOLE -TRIMETH OPRIM DRUG Active Itching 2016-10 00:00: 00 MD Idania wesley METRONID AZOLE HCL DRUG INGREDI Active Nausea 2016-10 00:00: 00 MD Idania HOROWITZAMIC IN DRUG INGREDI Active Low Palpitations 2016-10 00:00: 00 MD Idania wesley METRONID AZOLE HCL DRUG INGREDI Active Nausea 2016-10 00:00: 00 MD Idania wesley SULFAMET HOXAZOLE -TRIMETH OPRIM DRUG Active Itching 2016-10 00:00: 00 MD Idania wesley METRONID AZOLE HCL DRUG INGREDI Active Nausea 2016-10 00:00: 00 MD Idania HOROWITZAMIC IN DRUG INGREDI Active Low Palpitations 2016-10 00:00: 00 MD Idania wesley SULFAMET HOXAZOLE -TRIMETH OPRIM DRUG Active Itching 2016-10 00:00: 00 MD Idania wesley METRONID AZOLE HCL DRUG INGREDI Active Nausea 2016-10 00:00: 00 MD Idania DOTSON IN DRUG INGREDI Active Low Palpitations 2016-10 00:00: 00 MD Idania wesley SULFAMET HOXAZOLE -TRIMETH OPRIM DRUG Active Itching 2016-10 00:00: 00 MD Idania wesley METRONID AZOLE HCL DRUG INGREDI Active Nausea 2016-10 00:00: 00 MD Idania DOTSON IN DRUG INGREDI Active Low Palpitations 2016-10 00:00: 00 MD Idania wesley SULFAMET HOXAZOLE -TRIMETH OPRIM DRUG Active Itching 2016-10 00:00: 00 MD Idania wesley METRONID AZOLE HCL DRUG INGREDI Active Nausea 2016-10 00:00: 00 MD Idania wesley SULFAMET HOXAZOLE -TRIMETH OPRIM DRUG Active Itching 2016-10 00:00: 00 MD Idania wesley SULFAMET HOXAZOLE -TRIMETH OPRIM DRUG Active Itching 2016-10 00:00: 00 MD Idania wesley METRONID AZOLE HCL DRUG INGREDI Active Nausea 2016-10 00:00: 00 MD Idania wesley SULFAMET HOXAZOLE -TRIMETH OPRIM DRUG Active Itching 2016-10 00:00: 00 MD Idania wesley METRONID AZOLE HCL DRUG INGREDI Active Nausea 2016-10 00:00: 00 MD Idania wesley SULFAMET HOXAZOLE -TRIMETH OPRIM DRUG Active Itching 2016-10 00:00: 00 MD Idania wesley METRONID AZOLE HCL DRUG INGREDI Active Nausea 2016-10 00:00: 00 MD Idania wesley METRONID AZOLE HCL DRUG INGREDI Active Nausea 2016-10 00:00: 00 MD Idania wesley SULFAMET HOXAZOLE -TRIMETH OPRIM DRUG Active Itching 2016-10 00:00: 00 MD Idania wesley METRONID AZOLE HCL DRUG INGREDI Active Nausea 2016-10 00:00: 00 MD Idania wesley SULFAMET HOXAZOLE -TRIMETH OPRIM DRUG Active Itching 2016-10 00:00: 00 MD Idania wesley METRONID AZOLE HCL DRUG INGREDI Active Nausea 2016-10 00:00: 00 MD Idania wesley GENTAMIC IN DRUG INGREDI Active Low Palpitations 2016-10 00:00: 00 MD Idania wesley SULFAMET HOXAZOLE -TRIMETH OPRIM DRUG Active Itching 2016-10 00:00: 00 MD Idania wesley GENTAMIC IN DRUG INGREDI Active High Palpitations 2013-10 00:00: 00 MD Idania wesley GENTAMIC IN DRUG INGREDI Active High Palpitations 2013-10 00:00: 00 MD Idania wesley GENTAMIC IN DRUG INGREDI Active High Palpitations 2013-10 00:00: 00 MD Idania wesley GENTAMIC IN DRUG INGREDI Active High Palpitations 2013-10 00:00: 00 MD Idania wesley GENTAMIC IN DRUG INGREDI Active High Palpitations 2013-10 00:00: 00 MD Idania wesley GENTAMIC IN DRUG INGREDI Active High Palpitations 2013-10 00:00: 00 MD Idania wesley GENTAMIC IN DRUG INGREDI Active High Palpitations 2013-10 00:00: 00 MD Idania wesley Social History Social Habit Start Date Stop Date Quantity Comments Source Exposure to SARS-CoV-2 (event) Not sure [facility] Tobacco use and exposure 2021-02-15 00:00:00 2021-02-15 00:00:00 Never used [facility] Sex Assigned At 1940 00:00:00 1940 00:00:00 [facility] Smoking Status Start Date Stop Date Source Unknown if ever smoked [facility] Never smoker [facility] Medications Ordered Medication Name Filled Medication Name Start Date Stop Date Current Medication? Ordering Clinician Indication Dosage Frequency Signature (SIG) Comments Components Source simvastatin 20 mg tablet 02-17 19:20: 15 Yes 20mg Take 20 mg by mouth at bedtime. [facility] Levothyroxi ne 50 mcg capsule 02-17 19:20: 15 Yes Take by mouth. [facility] Cetirizine (ZYRTEC) 10 mg capsule 02-17 19:20: 15 Yes Take by mouth. [facility] famotidine 20 mg tablet 02-17 19:20: 15 Yes 20mg Take 20 mg by mouth 2 (two) times daily. [facility] Dexlansopra zole (DEXILANT) 60 mg capsule 02-17 19:20: 15 Yes Take by mouth. [facility] omeprazole 40 mg capsule 02-17 19:20: 15 Yes 40mg Take 40 mg by mouth daily. [facility] phenylephri ne 10 mg tablet 02-17 19:20: 15 Yes 10mg Take 10 mg by mouth every 4 (four) hours as needed. [facility] simvastatin 20 mg tablet 02-17 19:20: 15 Yes 20mg Take 20 mg by mouth at bedtime. [facility] Levothyroxi ne 50 mcg capsule 02-17 19:20: 15 Yes Take by mouth. [facility] Cetirizine (ZYRTEC) 10 mg capsule 02-17 19:20: 15 Yes Take by mouth. [facility] famotidine 20 mg tablet 02-17 19:20: 15 Yes 20mg Take 20 mg by mouth 2 (two) times daily. [facility] Dexlansopra zole (DEXILANT) 60 mg capsule 02-17 19:20: 15 Yes Take by mouth. [facility] omeprazole 40 mg capsule 02-17 19:20: 15 Yes 40mg Take 40 mg by mouth daily. [facility] phenylephri ne 10 mg tablet 02-17 19:20: 15 Yes 10mg Take 10 mg by mouth every 4 (four) hours as needed. [facility] water for irrigation irrigation solution 02-17 17:12: 00 Yes PRN, Starting Mon02/17/21 at 1212, Until Discontinu ed, Routine, Intra-op [facility] sodium chloride (NS) injection 02-17 17:12: 00 Yes PRN, Starting Mon02/17/21 at 1212, Until Discontinu ed, Routine, Intra-op [facility] water for irrigation irrigation solution 02-17 17:12: 00 02-17 21:20 :16 No PRN, Starting Mon02/17/21 at 1212, Until Mon02/17/21 at 1620, Routine, Intra-op [facility] sodium chloride (NS) injection 02-17 17:12: 00 02-17 21:20 :16 No PRN, Starting Mon02/17/21 at 1212, Until Mon02/17/21 at 1620, Routine, Intra-op [facility] neomycin-po lymyxin-dex amethasone (MAXITROL) 3.5 mg/g-10,000 unit/g-0.1 % ophthalmic ointment 02-17 17:11: 00 Yes PRN, Starting Mon02/17/21 at 1211, Until Discontinu ed, Routine, Intra-op [facility] Hyaluronida se, Human Recomb. (HYLENEX) injection 02-17 17:11: 00 Yes PRN, Starting Mon02/17/21 at 1211, Until Discontinu ed, Routine, Intra-op [facility] neomycin-po lymyxin-dex amethasone (MAXITROL) 3.5 mg/g-10,000 unit/g-0.1 % ophthalmic ointment 02-17 17:11: 00 02-17 21:20 :16 No PRN, Starting Mon02/17/21 at 1211, Until Mon02/17/21 at 1620, Routine, Intra-op [facility] Hyaluronida se, Human Recomb. (HYLENEX) injection 02-17 17:11: 00 02-17 21:20 :16 No PRN, Starting Mon02/17/21 at 1211, Until Mon02/17/21 at 1620, Routine, Intra-op [facility] eye block syringe 11 mL 02-17 17:10: 00 Yes PRN, Starting Mon02/17/21 at 1210, Until Discontinu ed, [facility] 02-17 17:10: 00 02-17 21:20 :16 No PRN, Starting Mon02/17/21 at 1210, Until Mon02/17/21 at 1620, Intra-op [facility] EPINEPHrine 1:1,000 (1 mg/mL) (ADRENALIN) injection 02-17 17:09: 00 Yes PRN, Starting Mon02/17/21 at 1209, Until Discontinu ed, Routine, Intra-op [facility] DUOVISC (DUOVISC VISCO ELASTIC) 3 %-4 %(0.5 mL) 1 % (0.55 mL) intraocular injection 02-17 17:09: 00 Yes PRN, Starting Mon02/17/21 at 1209, Until Discontinu ed, Routine, Intra-op [facility] dexamethaso ne (DECADRON PHOSPHATE) injection 02-17 17:09: 00 Yes PRN, Starting Mon02/17/21 at 1209, Until Discontinu ed, Routine, Intra-op [facility] EPINEPHrine 1:1,000 (1 mg/mL) (ADRENALIN) injection 02-17 17:09: 00 02-17 21:20 :16 No PRN, Starting Mon02/17/21 at 1209, Until Mon02/17/21 at 1620, Routine, [facility] (DUOVISC VISCO ELASTIC) 3 %-4 %(0.5 mL) 1 % (0.55 mL) intraocular injection 02-17 17:09: 00 02-17 21:20 :16 No PRN, Starting Mon02/17/21 at 1209, Until Mon02/17/21 at 1620, Routine, Intra-op [facility] dexamethaso ne (DECADRON PHOSPHATE) injection 02-17 17:09: 00 02-17 21:20 :16 No PRN, Starting Mon02/17/21 at 1209, Until Mon02/17/21 at 1620, Routine, Intra-op [facility] ceFAZolin (ANCEF) injection 02-17 17:08: 00 Yes PRN, Starting Mon02/17/21 at 1208, Until Discontinu ed, ANGELA, Intra-op [facility] carbachoL (MIOSTAT) 0.01 % intraocular injection 02-17 17:08: 00 Yes PRN, Starting Mon02/17/21 at 1208, Until Discontinu ed, Routine, Intra-op [facility] balanced salt irrig soln comb1 (BSS PLUS) ophthalmic solution 500 mL bag 02-17 17:08: 00 Yes PRN, Starting Mon02/17/21 at 1208, Until Discontinu ed, Routine, Intra-op [facility] ceFAZolin (ANCEF) injection 02-17 17:08: 00 02-17 21:20 :16 No PRN, Starting Mon02/17/21 at 1208, Until Mon02/17/21 at 1620, ANGELA, Intra-op [facility] carbachoL (MIOSTAT) 0.01 % intraocular injection 02-17 17:08: 00 02-17 21:20 :16 No PRN, Starting Mon02/17/21 at 1208, Until Mon02/17/21 at 1620, Routine, [facility] balanced salt irrig soln comb1 (BSS PLUS) ophthalmic solution 500 mL bag 02-17 17:08: 00 02-17 21:20 :16 No PRN, Starting Mon02/17/21 at 1208, Until Mon02/17/21 at 1620, Routine, Intra-op [facility] mydriatic #5 ophthalmic solution 0.5 mL syringe 02-17 15:30: 00 02-17 16:13 :00 No .5mL 0.5 mL, Left Eye, ONCE, 1 dose, Mon02/17/21 at 1030, Routine, DSU Pre-op [facility] lactated ringers IV infusion 1,000 mL 02-17 15:30: 00 02-17 15:42 :00 No 1000mL at 42 mL/hr, 1,000 mL, IV Infusion, ONCE, 1 dose, Mon02/17/21 at 1030, Routine, DSU Pre-op [facility] mydriatic #5 ophthalmic solution 0.5 mL syringe 02-17 15:30: 00 02-17 16:13 :00 No .5mL 0.5 mL, Left Eye, ONCE, 1 dose, Mon02/17/21 at 1030, Routine, DSU Pre-op [facility] lactated ringers IV infusion 1,000 mL 02-17 15:30: 00 02-17 15:42 :00 No 1000mL at 42 mL/hr, 1,000 mL, IV Infusion, ONCE, 1 dose, Mon02/17/21 at 1030, Routine, DSU Pre-op [facility] famotidine 20 mg tablet 11-25 19:28: 59 Yes 20mg Take 20 mg by mouth 2 (two) times daily. [facility] Dexlansopra zole (DEXILANT) 60 mg capsule 11-25 19:28: 59 Yes Take by mouth. [facility] omeprazole 40 mg capsule 11-25 19:28: 59 Yes 40mg Take 40 mg by mouth daily. [facility] phenylephri ne 10 mg tablet 11-25 19:28: 59 Yes 10mg Take 10 mg by mouth every 4 (four) hours as needed. [facility] simvastatin 20 mg tablet 24 19:28: 59 Yes 20mg Take 20 mg by mouth at bedtime. [facility] Levothyroxi ne 50 mcg capsule 24 19:28: 59 Yes Take by mouth. [facility] Cetirizine (ZYRTEC) 10 mg capsule 24 19:28: 59 Yes Take by mouth. [facility] famotidine 20 mg tablet 24 19:28: 59 Yes 20mg Take 20 mg by mouth 2 (two) times daily. [facility] Dexlansopra zole (DEXILANT) 60 mg capsule 11-25 19:28: 59 Yes Take by mouth. [facility] omeprazole 40 mg capsule 11-25 19:28: 59 Yes 40mg Take 40 mg by mouth daily. [facility] phenylephri ne 10 mg tablet 11-25 19:28: 59 Yes 10mg Take 10 mg by mouth every 4 (four) hours as needed. [facility] simvastatin 20 mg tablet 11-25 19:28: 59 Yes 20mg Take 20 mg by mouth at bedtime. [facility] Levothyroxi ne 50 mcg capsule 11-25 19:28: 59 Yes Take by mouth. [facility] Cetirizine (ZYRTEC) 10 mg capsule 24 19:28: 59 Yes Take by mouth. [facility] famotidine 20 mg tablet 24 19:28: 59 Yes 20mg Take 20 mg by mouth 2 (two) times daily. [facility] Dexlansopra zole (DEXILANT) 60 mg capsule 24 19:28: 59 Yes Take by mouth. [facility] omeprazole 40 mg capsule 0 24 19:28: 59 Yes 40mg Take 40 mg by mouth daily. [facility] phenylephri ne 10 mg tablet 24 19:28: 59 Yes 10mg Take 10 mg by mouth every 4 (four) hours as needed. [facility] simvastatin 20 mg tablet 11-25 19:28: 59 Yes 20mg Take 20 mg by mouth at bedtime. [facility] Levothyroxi ne 50 mcg capsule 11-25 19:28: 59 Yes Take by mouth. [facility] Cetirizine (ZYRTEC) 10 mg capsule 11-25 19:28: 59 Yes Take by mouth. [facility] water for irrigation irrigation solution 11-25 18:48: 00 Yes PRN, Starting Mon11/25/20 at 1248, Until Discontinu ed, Routine, Intra-op [facility] sodium chloride (NS) injection 11-25 18:47: 00 Yes PRN, Starting Mon11/25/20 at 1247, Until Discontinu ed, Routine, Intra-op [facility] EPINEPHrine 1:1,000 (1 mg/mL) (ADRENALIN) injection 11-25 18:47: 00 Yes PRN, Starting Mon11/25/20 at 1247, Until Discontinu ed, Routine, Intra-op [facility] DUOVISC (DUOVISC VISCO ELASTIC) 3 %-4 %(0.5 mL) 1 % (0.55 mL) intraocular injection 11-25 18:46: 00 Yes PRN, Starting Mon11/25/20 at 1246, Until Discontinu ed, Routine, Intra-op [facility] dexamethaso ne (DECADRON PHOSPHATE) injection 11-25 18:46: 00 Yes PRN, Starting Mon11/25/20 at 1246, Until Discontinu ed, Routine, Intra-op [facility] ceFAZolin (ANCEF) injection 11-25 18:45: 00 Yes PRN, Starting Mon11/25/20 at 1245, Until Discontinu ed, ANGELA, Intra-op [facility] carbachoL (MIOSTAT) 0.01 % intraocular injection 11-25 18:45: 00 Yes PRN, Starting Mon11/25/20 at 1245, Until Discontinu ed, Routine, Intra-op [facility] balanced salt irrig soln comb1 (BSS PLUS) ophthalmic solution 500 mL bag 11-25 18:45: 00 Yes PRN, Starting Mon11/25/20 at 1245, Until Discontinu ed, Routine, Intra-op [facility] neomycin-po lymyxin-dex amethasone (MAXITROL) 3.5 mg/g-10,000 unit/g-0.1 % ophthalmic ointment 11-25 18:42: 00 Yes PRN, Starting Mon11/25/20 at 1242, Until Discontinu ed, Routine, [facility] 11 mL 11-25 18:33: 00 Yes PRN, Starting Mon11/25/20 at 1233, Until Discontinu ed, Intra-op [facility] Hyaluronida se, Human Recomb. (HYLENEX) injection 11-25 18:32: 00 Yes PRN, Starting Mon11/25/20 at 1232, Until Discontinu ed, Routine, Intra-op [facility] mydriatic #5 ophthalmic solution 0.5 mL syringe 11-25 17:15: 00 11-25 17:21 :00 No .5mL 0.5 mL, Right Eye, ONCE, 1 dose, Mon11/25/20 at 1115, Routine, DSU Pre-op [facility] lactated ringers IV infusion 1,000 mL 11-25 17:15: 00 11-25 17:30 :00 No 1000mL at 42 mL/hr, 1,000 mL, IV Infusion, ONCE, 1 dose, Mon11/25/20 at 1115, Routine, DSU Pre-op [facility] Vital Signs Vital Name Observation Time Observation Value Comments S netoyosi Systolic blood pressure 2021-02-17 19:05:00 158 mm[Hg] [facility] Diastolic blood pressure 2021-02-17 19:05:00 74 mm[Hg] [facility] Heart rate 2021-02-17 19:00:00 60 /min [facility] Oxygen saturation in Arterial blood by Pulse oximetry 2021-02-17 19:00:00 99 /min [facility] Body temperature 2021-02-17 15:27:00 36.78 Eileen [facility] Respiratory rate 2021-02-17 15:27:00 20 /min [facility] Body height 2021-02-04 15:43:00 175.3 cm [facility] Body weight 2021-02-04 15:43:00 72.6 kg [facility] BMI 2021-02-04 15:43:00 23.64 kg/m2 [facility] Systolic blood pressure 2021-02-17 15:27:00 162 mm[Hg] [facility] Diastolic blood pressure 2021-02-17 15:27:00 89 mm[Hg] [facility] Heart rate 2021-02-17 15:27:00 63 /min [facility] Body temperature 2021-02-17 15:27:00 36.78 Eileen [facility] Respiratory rate 2021-02-17 15:27:00 20 /min [facility] Oxygen saturation in Arterial blood by Pulse oximetry 2021-02-17 15:27:00 99 /min [facility] Body height 2021-02-04 15:43:00 175.3 cm [facility] Body weight 2021-02-04 15:43:00 72.6 kg [facility] BMI 2021-02-04 15:43:00 23.64 kg/m2 [facility] Systolic blood pressure 2020-11-25 19:10:00 152 mm[Hg] [facility] Diastolic blood pressure 2020-11-25 19:10:00 72 mm[Hg] [facility] Heart rate 2020-11-25 19:10:00 58 /min [facility] Respiratory rate 2020-11-25 19:10:00 19 /min [facility] Oxygen saturation in Arterial blood by Pulse oximetry 2020-11-25 19:10:00 99 /min [facility] Body temperature 2020-11-25 18:57:00 36.61 Eileen [facility] Body height 2020-11-24 21:15:00 175.3 cm [facility] Body weight 2020-11-24 21:15:00 72.576 kg [facility] BMI 2020-11-24 21:15:00 23.63 kg/m2 [facility] Procedures Procedure Date / Time Performed Performing Clinician Source PHACOEMULSIFICATION OF CATARACT WITH INTRAOCULAR LENS IMPLANT 2021-02-17 17:56:00 Nishant Farris [facility] ASSIGNMENT OF BENEFITS 2021-02-16 16:38:21 Doctor Unassigned, [place] [facility] Encounters Start Date/Time End Date/Time Encounter Type Admission Type Attending Clinicians Care Facility Care Department Encounter ID Source 2022-02-11 11:29:02 Outpatient [facility] [id number] [facility] 2022-02-07 09:48:04 Outpatient [facility] [id number] [facility] 2021-08-01 17:36:01 Outpatient NISHANT MARTINEZ [facility] OPH [id number] [facility] 2021-08-01 00:27:40 Outpatient NISHANT MARTINEZ [facility] CALEB [id number] [facility] 2023-05-17 08:15:00 2023-05-17 23:59:00 Outpatient KORI CORDON MDA, MDA [id number] MD Idania wesley 2023-05-17 13:06:32 2023-05-17 13:47:46 Outpatient KORI CORDON MDA, MDA [id number] MD Idania wesley 2023-05-17 12:23:26 2023-05-17 12:23:26 Outpatient KORI CORDON MDA, MDA [id number] MD Iadnia wesley 2023-05-17 09:04:01 2023-05-17 09:04:01 Outpatient KORI CORDON MDA, MDA [id number] MD Idania wesley 2021-05-13 15:59:12 2021-05-13 23:59:00 Outpatient [facility] [id number] MD Idania wesley 2021-05-13 15:09:34 2021-05-13 15:58:00 Outpatient [facility] [id number] MD Idania wesley 2021-02-17 10:25:00 2021-02-17 14:13:00 Hospital Encounter [facility] Nishant [facility] [id number] [facility] 2021-02-17 12:02:00 2021-02-17 12:42:00 Surgery [facility] [id number] [facility] 2021-02-16 11:44:52 2021-02-16 11:59:52 Laboratory Only Only, Adc Test [facility] [id number] [facility] 2021-02-16 11:30:00 2021-02-16 11:30:00 Outpatient R NISHANT [facility]ARR[facility] [id number] [facility] 2021-02-16 00:00:00 2021-02-16 00:00:00 Orders Only Doctor Unassigned, [place] [facility] [id number] [facility] 2020-11-25 09:55:00 2020-11-25 13:27:00 Hospital Encounter [facility] [id number] [facility] 2020-11-24 09:45:00 2020-11-24 09:45:00 Outpatient R NISHANT FARRIS [facility] [id number] [facility] 2020-11-23 12:45:00 2020-11-23 12:45:00 Outpatient R NISHANT FARRIS [facility] [id number] [facility] 2020-11-23 11:08:06 2020-11-23 11:23:06 Copywriting Intern Visit Pob, Adc Lab [facility] 1..840.114 [id number] [facility] 2020-11-23 11:05:51 2020-11-23 11:20:51 Laboratory Only Only, Adc Test Nishant Farris [facility] 1..840.114 [id number] [facility] 2020-11-20 10:15:00 2020-11-20 10:15:00 Outpatient Ced FARRIS [facility] [id number] [facility]
[2023-12-25 07:56] LABS: Absolute Basophils 0.1 K/uL (0-0.5); Absolute Eosinophils 0.1 K/uL (0-0.5); Absolute Neutrophil 4.8 K/uL (1.8-8.0); Basophils % 0.8 % (0-1.3); Eosinophils % 1.5 % (0-4.4); Hematocrit 37.2 % (39.6-49.0); Hemoglobin 12.9 g/dL (13.6-17.9); Lymphocytes % 14.5 % (15.3-44.8); MCH 30.2 pg (27.0-35.0); MCHC 34.6 g/dL (32.0-36.0); MCV 87.4 fL (80-100); MPV 8.2 fL (7.6-11.3); Monocytes % 13.8 % (3.3-12.3); Neutrophils % 69.4 % (41.7-73.7); Nucleated Red Blood Cells % 0.1 % (0-0); Platelets 228 thou/uL (152-406); RBC Red Blood Cell Count 4.26 M/uL (4.33-5.43); Red Cell Distribution Width 13.3 % (12.1-15.2)
[2023-12-25 08:11] LABS: Albumin 3.7 g/dL (3.4-5.0); Albumin/Globulin Ratio 0.9 (1.1-1.8); Anion Gap 5.8 mEq/L (5.0-15.0); Bilirubin Total 0.7 mg/dL (0.2-1.0); Globulin 4.3 g/dL (2.3-3.5); Potassium 3.8 mEq/L (3.5-5.1)
--- NOTE | 2023-12-25 08:17 | RAD REPORT ---
EXAM DESCRIPTION: CT - Abdomen Pelvis Wo Contrast - 12/25/2023 8:05 am CLINICAL HISTORY: Abdominal pain. back pain COMPARISON: [facility] Protocol dated 12/31/2017 TECHNIQUE: CT imaging of the abdomen and pelvis was performed without contrast. Solid organ, bowel a nd vascular assessment is limited due to lack of IV and oral contrast. All CT scans are performed using dose optimization technique as appropriate and may include automated exposure control or mA/KV adjustment according to patient size. FINDINGS: The lower lung ballesteros are clear.Cholecystectomy clips. The liver, spleen, pancreas, adrenal glands are within normal limits for a limited non-contrast exami [facility].Moderate bilateral hydronephrosis and hydroureter is present with right lower quadrant urinary diversion. The degree hydronephrosis and hydroureter appears chronic and stable. No bowel obstruction, free air, free fluid or abscess. Moderate stool is retained in the rectum. The appendix is normal. The osseous structures are within normal limits.Postsurgical clips in the pelvis and left inguinal re gion. IMPRESSION: Moderate bilateral hydronephrosis and hydroureter is present with a right lower quadrant urinary diversion. The degree of distention of the urinary tract appears chronic and stable since 20 18. A limited non-contrast examination was performed as detailed.
[2023-12-25 08:38] LABS: Specific Gravity 1.009 (1.005-1.030); Sqamous Epithelial None Seen /HPF (None Seen); Urine Bacteria >50 /HPF (<20); Urine Bilirubin NEGATIVE (Negative); Urine Blood 3+ (OVER) (Negative); Urine Clarity Extremely Turbid (Clear); Urine Color Light-Orange (Yellow); Urine Culture Reflex Order REFLEXED; Urine Glucose NEGATIVE (Negative); Urine Ketones NEGATIVE (Negative); Urine Microscopic Reflex YN ORDER UMIC; Urine Mucus Slight /HPF (None Seen); Urine Nitrite NEGATIVE (Negative); Urine Protein 2+ (Negative); Urine RBC >50 /HPF (None Seen); Urine Urobilinogen Normal (Normal); Urine WBC >50 /HPF (<5); Urine WBC Clump Many /HPF (None Seen)
--- NOTE | 2023-12-25 09:52 | ER ---
Nurse's Notes [facility] Name: Len Starkey Age: 83 yrs Sex: Male : 1940 Arrival Date: 12/25/2023 Time: 06:52 Bed 5 Private MD: Diagnosis: Low back pain;Elevated blood-pressure reading, without diagnosis of hypertension Presentation: 12/24 07:08 Chief complaint: Patient states: mid-back pain that began approximately 1 week ago, pt aa5 reports pain is worse to right mid back. 07:08 Onset of symptoms was December 2023. aa5 07:08 Acuity: DAVID 3 aa5 07:08 Method Of Arrival: Ambulatory aa5 07:08 Coronavirus screen: At this time, the client does not indicate any symptoms associated aa5 with coronavirus-19. Ebola Screen: Patient denies travel to an Ebola-affected area in the 21 days before illness onset. Initial Sepsis Screen: Does the patient meet any 2 criteria? No. Patient's initial sepsis screen is negative. Does the patient have a suspected source of infection? No. Patient's initial sepsis screen is negative. Risk Assessment: Do you want to hurt yourself or someone else? Patient reports no desire to harm self or others. 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 - Social history:: Smoking status: Patient denies any tobacco usage or history of. Screenin:47 [facility] ED Fall Risk Assessment (Adult) History of falling in the last 3 months, ko1 including since admission No falls in past 3 months (0 pts) Confusion or Disorientation No (0 pts) Intoxicated or Sedated No (0 pts) Impaired Gait No (0 pts) Mobility Assist Device Used No (0 pt) Altered Elimination No (0 pt) Score/Fall Risk Level 0 - 2 = Low Risk Oriented to surroundings, Maintained a safe environment, Educated pt \T\ family on fall prevention, incl call for assistance when getting out of bed, Assessed \T\ reinforced patient's understanding of fall precautions, Provided non-skid footwear, Hourly rounding (assess needs \T\ fall precautionary measures) done, Used ambulatory aids as needed (educated on \T\ assisted with), Used gait belt as appropriate. Abuse screen: Denies threats or abuse. Denies injuries from another. Nutritional screening: No deficits noted. Tuberculosis screening: No symptoms or risk factors identified. Assessment: 07:15 General: Appears in no apparent distress. Behavior is calm, cooperative, appropriate ko1 for age. Pain: Complains of pain in posterior aspect of right lateral abdomen, right lower quadrant and left lower quadrant. Neuro: Level of Consciousness is awake, alert, obeys commands, Oriented to person, place, time, situation, Appropriate for age. Cardiovascular: No deficits noted. Respiratory: No deficits noted. GI: No deficits noted. : Reports pain in right in suprapubic area flank(s), in lower back. EENT: No deficits noted. Derm: No deficits noted. Musculoskeletal: No deficits noted. Vital Signs: 07:08 BP 157 / 86; Pulse 77; Resp 18 S; Temp 98.2(TE); Pulse Ox 100% on R/A; Weight 74.84 kg aa5 (R); Height 5 ft. 9 in. (R); 08:38 BP 161 / 81; Pulse 63; Resp 15; Pulse Ox 99% ; ko1 10:04 BP 154 / 77; Pulse 60; Resp 15; Pulse Ox 99% ; ko1 07:08 Body Mass Index 24.37 (74.84 kg, 175.26 cm) aa5 ED Course: 06:58 Patient arrived in ED. mg5 07:08 Arm band placed on Patient placed in an exam room, on a stretcher. aa5 07:10 Marcin Hicks DO is Attending Physician. ms3 07:13 Ignacio Sebastian, RN is Primary Nurse. bp 07:32 Triage completed. aa5 07:46 CBC with Diff Sent. ko1 07:46 CMP Sent. ko1 07:47 Patient has correct armband on for positive identification. Allergy band placed. Placed ko1 in gown. Bed in low position. Call light in reach. Side rails up X 1. Client placed on continuous cardiac and pulse oximetry monitoring. NIBP monitoring applied. playground monitor on. Door closed. Noise minimized. Lights dimmed. Warm blanket given. Assisted to bathroom. 07:47 Initial lab(s) drawn, by me, sent to lab. Inserted saline lock: 20 gauge in right ko1 antecubital area, using aseptic technique. Blood collected. 08:04 Urinalysis w/ reflexes Sent. bp 08:04 CMP Sent. bp 08:06 CT Abd/Pelvis - Without Contrast In Process Unspecified. EDMS 09:21 Provided Education on: na. ko1 09:21 No provider procedures requiring assistance completed. ko1 09:50 Omega Sparks MD is Referral Physician. ms3 10:04 IV discontinued, intact, bleeding controlled, No redness/swelling at site. Pressure ko1 dressing applied. Administered Medications: No medications were administered Medication: 09:21 VIS not applicable for this client. ko1 Outcome: 09:51 Discharge ordered by MD. ms3 10:04 Discharged to home ambulatory, ko1 10:04 Condition: stable 10:04 Discharge instructions given to patient, Instructed on discharge instructions, follow up and referral plans. Demonstrated understanding of instructions, follow-up care, 10:05 Patient left the ED. ko1 Signatures: Dispatcher [employer] EDID Julia Posey, RN RN aa5 Ignacio Sebastian, RN RN bp Marcin Hicks DO DO ms3 Lesa Beaulieu, RN RN ko1 Ellen Lanza mg5
--- NOTE | 2023-12-25 09:52 | EDPHYS ---
Physician Documentation [facility] Name: Len Starkey Age: 83 yrs Sex: Male : 1940 Arrival Date: 12/25/2023 Time: 06:52 Bed 5 Private MD: ED Physician Marcin Hicks HPI: 12/24 07:51 This 83 yrs old Male presents to ER via Ambulatory with complaints of Back Pain. ms3 07:51 83-year-old male with past medical history of stricture and bile duct, ms3 hypercholesterolemia, thyroid problem presents to the emergency department for back pain. 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 Patient states the conduit has become obstructed at times however this does not feel like an obstruction or infection. Patient denies fevers, chills, nausea, vomiting.. 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 - Social history:: Smoking status: Patient denies any tobacco usage or history of. ROS: 07:51 Constitutional: Negative for fever, and chills. Neck: Negative for injury, pain, and ms3 swelling, Cardiovascular: Negative for chest pain, and palpitations. Respiratory: Negative for shortness of breath, cough, wheezing, and pleuritic chest pain, Abdomen/GI: Negative for abdominal pain, nausea, vomiting, diarrhea, and constipation, 07:51 Back: Positive for Back pain, Exam: 07:51 Constitutional: This is a well developed, well nourished patient who is awake, alert, ms3 and in no acute distress. Head/Face: Normocephalic, atraumatic. Chest/axilla: Normal chest wall appearance and motion. Nontender with no deformity. Cardiovascular: Regular rate and rhythm with a normal S1 and S2. No gallops, murmurs, or rubs. Normal PMI, no JVD. No pulse deficits. Respiratory: Lungs have equal breath sounds bilaterally, clear to auscultation and percussion. No rales, rhonchi or wheezes noted. No increased work of breathing, no retractions or nasal flaring. Abdomen/GI: Soft, non-tender, with normal bowel sounds. No distension or tympany. No guarding or rebound. No evidence of tenderness throughout. Ileal conduit stoma pink without surrounding erythema. Urine in collection bag. Back: No spinal tenderness. No costovertebral tenderness. Full range of motion. Skin: Warm, dry with normal turgor. Normal color with no rashes, no lesions, and no evidence of cellulitis. Vital Signs: 07:08 BP 157 / 86; Pulse 77; Resp 18 S; Temp 98.2(TE); Pulse Ox 100% on R/A; Weight 74.84 kg aa5 (R); Height 5 ft. 9 in. (R); 08:38 BP 161 / 81; Pulse 63; Resp 15; Pulse Ox 99% ; ko1 10:04 BP 154 / 77; Pulse 60; Resp 15; Pulse Ox 99% ; ko1 07:08 Body Mass Index 24.37 (74.84 kg, 175.26 cm) aa5 MDM: 07:24 Patient medically screened. ms3 07:51 Differential diagnosis: Conduit obstruction versus urinary tract infection versus ms3 musculoskeletal pain. 09:52 Data reviewed: vital signs, nurses notes, lab test result(s), radiologic studies, CT ms3 scan, and as a result, I will discharge patient. Management of patient was discussed with the following: Primary Care Provider: Dr Sparks- No need for abx at this time since patient is asymptomatic. Will follow closely outpatient.. Care significantly affected by the following chronic conditions: HLD, Ileal conduit. Counseling: I had a detailed discussion with the patient and/or guardian regarding the historical points, exam findings, and any diagnostic results supporting the discharge/admit diagnosis, lab results, radiology results, the need for outpatient follow up, to return to the emergency department if symptoms worsen or persist or if there are any questions or concerns that arise at home. Special discussion: I discussed with the patient/guardian in detail that at this point there is no indication for admission to the hospital. It is understood, however, that if the symptoms persist or worsen the patient needs to return immediately for re-evaluation. ED course: Discussed patient with Dr. Sparks. He will follow patient closely outpatient. Does not recommend antibiotics at this time as patient is asymptomatic. Discussed plan with patient. Patient understands agrees with plan. All questions were answered. Return precautions discussed include fevers, chills, nausea, vomiting, or any other concerns.. 12/24 07:24 Order name: CBC with Diff; Complete Time: 08:04 ms3 12/24 07:24 Order name: CMP; Complete Time: 08:32 ms3 12/24 07:24 Order name: Urinalysis w/ reflexes; Complete Time: 09:13 ms3 12/24 08:42 Order name: Urine Culture EDMS 12/24 07:24 Order name: CT Abd/Pelvis - Without Contrast; Complete Time: 08:32 ms3 12/24 07:24 Order name: IV Saline Lock; Complete Time: 07:46 ms3 12/24 07:24 Order name: Labs collected and sent; Complete Time: 07:46 ms3 Administered Medications: No medications were administered Disposition Summary: 12/25/23 09:51 Discharge Ordered Notes: Location: Home ms3 Condition: Stable ms3 Diagnosis - Low back pain ms3 - Elevated blood-pressure reading, without diagnosis of hypertension ms3 Followup: ms3 - With: Omega Sparks MD - When: 2 - 3 days - Reason: Recheck today's complaints Discharge Instructions: - Discharge Summary Sheet ms3 - Acute Back Pain, Adult ms3 Forms: - Medication Reconciliation Form ms3 - Thank You Letter ms3 - Antibiotic Education ms3 - Prescription Opioid Use ms3 - Patient Portal Instructions ms3 - Leadership Thank You Letter ms3 Signatures: Dispatcher [employer] Julia Johnson RN RN aa5 Marcin Hicks DO DO ms3 Corrections: (The following items were deleted from the chart) 07:53 07:51 Constitutional: This is a well developed, well nourished patient who is awake, ms3 alert, and in no acute distress. Head/Face: Normocephalic, atraumatic. Chest/axilla: Normal chest wall appearance and motion. Nontender with no deformity. Cardiovascular: Regular rate and rhythm with a normal S1 and S2. No gallops, murmurs, or rubs. Normal PMI, no JVD. No pulse deficits. Respiratory: Lungs have equal breath sounds bilaterally, clear to auscultation and percussion. No rales, rhonchi or wheezes noted. No increased work of breathing, no retractions or nasal flaring. Abdomen/GI: Soft, non-tender, with normal bowel sounds. No distension or tympany. No guarding or rebound. No evidence of tenderness throughout. Back: No spinal tenderness. No costovertebral tenderness. Full range of motion. Skin: Warm, dry with normal turgor. Normal color with no rashes, no lesions, and no evidence of cellulitis. ms3
[2023-12-25 10:28] VITALS: BP 154/77; TEMP 98.2; O2SAT 99
== END ==
LOC: ER 06:52
DX: M54.50 Low back pain, unspecified (principal); R03.0 Elevated blood-pressure reading, without diagnosis of hypertension; Z88.1 Allergy status to other antibiotic agents; Z88.3 Allergy status to other anti-infective agents
CPT/HCPCS: 36415; 74176; 80053; 81001; 85025; 87077; 87086; 87088; 87186; 99284

== ENCOUNTER 2024-08-28 19:57 | Emergency (ER) | payer OTHER ==
[2024-08-28 20:57] LABS: Specific Gravity 1.005 (1.005-1.030); Urine Bilirubin NEGATIVE (Negative); Urine Blood Negative (Negative); Urine Clarity Clear (Clear); Urine Color Colorless (Yellow); Urine Glucose NEGATIVE (Negative); Urine Ketones NEGATIVE (Negative); Urine Microscopic Reflex YN NO UMIC; Urine Nitrite NEGATIVE (Negative); Urine Protein NEGATIVE (Negative); Urine Urobilinogen Normal (Normal)
--- NOTE | 2024-08-28 21:06 | RAD REPORT ---
EXAMINATION: CT ABDOMEN AND PELVIS WITHOUT CONTRAST CLINICAL INDICATION: ABD PAIN TECHNIQUE: CT abdomen and pelvis was performed, without IV contrast, as per department protocol. Axia l, sagittal and coronal reconstructions were obtained. One or more of the following dose reduction techniques were used: Automated exposure control, adjustment of the mA and kV according to the patien t size, and iterative reconstruction. Unless otherwise specified, incidental findings do not require dedicated imaging follow-up. COMPARISON: 12/25/2023 FINDINGS: The lack of intravenous contrast limits the sensitivity of this exam for evaluation of solid visceral organs, vascular structures, and retroperitoneum. LOWER CHEST: The visualized lung bases are clear. LIVER:Normal in size and contour. No focal lesion. Cholecystectomy clips. SPLEEN: Normal size. No focal lesion. PANCREAS: No mass, ductal dilation, or ronda-pancreatic fluid. ADRENALS: Normal; no mass. KIDNEYS AND URETERS: Normal size and contour. No hydronephrosis. 5 cm right renal cyst. Punctate ston e inferior left kidney. URINARY BLADDER: Absent. GASTROINTESTINAL TRACT: No evidence of bowel obstruction, significant free fluid, free air or abscess . Right lower quadrant urostomy. Moderate stool retained in the colon. APPENDIX: Normal appendix. LYMPH NODES: No lymphadenopathy. MUSCULOSKELETAL: No acute or suspicious osseous abnormality. ADDITIONAL FINDINGS: Postsurgical clips left inguinal region. IMPRESSION: No acute or concerning abnormalities in the abdomen or pelvis, with evaluation limited by lack of IV contrast. Right lower quadrant urinary diversion.
[2024-08-28] MEDS ORDERED: levoFLOXacin 750 MG TAB ONE (21:59)
[2024-08-28 22:04] LABS: Specific Gravity < 1.005 (1.005-1.030); Sqamous Epithelial None Seen /HPF (None Seen); Urine Bacteria <20 /HPF (<20); Urine Bilirubin NEGATIVE (Negative); Urine Blood Negative (Negative); Urine Clarity Clear (Clear); Urine Color Colorless (Yellow); Urine Crystals Unidentified Few /HPF (None Seen); Urine Culture Reflex Order NOT NEEDED; Urine Glucose NEGATIVE (Negative); Urine Ketones NEGATIVE (Negative); Urine Micro Reflex YN NO BILL MICROSCOPIC; Urine Nitrite NEGATIVE (Negative); Urine Protein NEGATIVE (Negative); Urine RBC <5 /HPF (None Seen); Urine Urobilinogen Normal (Normal); Urine WBC <5 /HPF (<5)
[2024-08-28 22:52] LABS: ALT/SGPT 22 U/L (16-61); AST/SGOT 27 U/L (15-37); Albumin 4.1 g/dL (3.4-5.0); Albumin/Globulin Ratio 1.1 (1.1-1.8); Alkaline Phosphatase 108 U/L (45-117); Anion Gap 9.5 mEq/L (5.0-15.0); BUN Blood Urea Nitrogen 11 mg/dL (7-18); Bicarbonate 28 mEq/L (21-32); Bilirubin Total 0.8 mg/dL (0.2-1.0); Globulin 3.9 g/dL (2.3-3.5); Glomerular Filtration Rate 67 ml/min (=/>90); Glucose Level 92 mg/dL (74-106); Lipase 22 U/L (13-75); Potassium 4.5 mEq/L (3.5-5.1); Sodium Level 138 mEq/L (136-145); Troponin High Sensitivity 5.6 pg/mL (<58.9)
[2024-08-28 22:56] LABS: C-Reactive Protein < 2.90 mg/L (<3.00)
[2024-08-28 23:42] LABS: Absolute Eosinophils 0.1 K/uL (0-0.5); Absolute Lymphocytes (CBC) 1.4 K/uL (0.7-4.9); Absolute Monocytes 0.7 K/uL (0.1-1.3); Absolute Neutrophil 3.2 K/uL (1.8-8.0); Basophils % 0.7 % (0-1.3); Hematocrit 42.2 % (39.6-49.0); Hemoglobin 13.9 g/dL (13.6-17.9); Lymphocytes % 25.5 % (15.3-44.8); MCH 29.8 pg (27.0-35.0); MCHC 32.9 g/dL (32.0-36.0); MCV 90.4 fL (80-100); MPV 9.9 fL (7.6-11.3); Monocytes % 12.6 % (3.3-12.3); Neutrophils % 60.2 % (41.7-73.7); Platelets 155 thou/uL (152-406); RBC Red Blood Cell Count 4.67 M/uL (4.33-5.43); Red Cell Distribution Width 13.3 % (12.1-15.2)
--- NOTE | 2024-08-29 00:27 | EDPHYS ---
Physician Documentation [facility] Name: Len Starkey Age: 83 yrs Sex: Male : 1940 Arrival Date: 08/28/2024 Time: 19:57 Bed 18 Private MD: ED Physician Bhavesh Erickson HPI: 08/28 20:10 This 83 yrs old Male presents to ER via Unassigned with complaints of Urinary sp4 Problem. 20:56 83-year-old male presents with complaint of symptoms of UTI. Patient has history of sp4 urinary bladder resection secondary to urinary bladder cancer at [facility] 34 years ago.. 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 - Infectious Disease History:: Denies. - Social history:: Smoking status: Patient denies any tobacco usage or history of. - Family history:: not pertinent. ROS: 08/29 20:43 Constitutional: Negative for fever, chills, and weight loss, positive for chills and sp4 back pain, positive for history of right lower quadrant abdominal urostomy All other systems are negative, Exam: 20:43 Constitutional: This is a well developed, well nourished patient who is awake, alert, sp4 and in no acute distress. Head/Face: Normocephalic, atraumatic. Eyes: Pupils equal round and reactive to light, extra-ocular motions intact. Lids and lashes normal. Conjunctiva and sclera are not injected. Cornea within normal limits. Periorbital areas with no swelling, redness, or edema. ENT: Nares patent. No nasal discharge, no septal abnormalities noted. Tympanic membranes are normal and external auditory canals are clear. Oropharynx with no redness, swelling, or masses, exudates, or evidence of obstruction, uvula midline. Mucous membranes moist. Neck: Trachea midline, no thyromegaly or masses palpated, and no cervical lymphadenopathy. Supple, full range of motion without nuchal rigidity, or vertebral point tenderness. Chest/axilla: Normal chest wall appearance and motion. Nontender with no deformity. No lesions are appreciated. Cardiovascular: Regular rate and rhythm with a normal S1 and S2. No gallops, murmurs, or rubs. Normal PMI, no JVD. No pulse deficits. Respiratory: Lungs have equal breath sounds bilaterally, clear to auscultation and percussion. No rales, rhonchi or wheezes noted. No increased work of breathing, no retractions or nasal flaring. Abdomen/GI: Soft, with normal bowel sounds. No distension or tympany. No guarding or rebound. No evidence of tenderness throughout. Positive for right lower quadrant abdominal urostomy with clear urine. Back: No spinal tenderness. No costovertebral tenderness. Skin: Warm, dry with normal turgor. Normal color with no rashes, no lesions, and no evidence of cellulitis. MS/ Extremity: Pulses equal, no cyanosis. Neurovascular intact. Full, normal range of motion. Neuro: Awake and alert, GCS 15, oriented to person, place, time, and situation. Cranial nerves II-XII grossly intact. Motor strength 5/5 in all extremities. Sensory grossly intact. Psych: Awake, alert, with orientation to person, place and time. Behavior, mood, and affect are within normal limits Vital Signs: 08/28 20:32 BP 162 / 101; Pulse 77; Resp 16; Temp 98.5(O); Pulse Ox 98% ; Weight 72.57 kg; Height 5 cm10 ft. 9 in. ; Pain 2/10; 21:56 BP 178 / 85; Pulse 77; Resp 18; Temp 98.4(O); Pulse Ox 97% on R/A; [facility] 22:30 BP 164 / 77; Pulse 77; Resp 17; Pulse Ox 98% on R/A; 5 23:00 BP 157 / 75; Pulse 78; Resp 17; Pulse Ox 99% on R/A; Pain 0/10; [facility] 08/29 00:00 BP 155 / 77; Pulse 77; Resp 17; Temp 98(O); Pain 0/10; [facility] 08/28 20:32 Body Mass Index 23.63 (72.57 kg, 175.26 cm) cm10 08/28 20:32 Pain Scale: Adult cm10 23:00 Pain Scale: Adult [facility] 08/29 00:00 Pain Scale: Adult rg5 Brooks Coma Score: 20:43 Eye Response: spontaneous(4). Motor Response: obeys commands(6). Verbal Response: sp4 oriented(5). Total: 15. MDM: 08/28 20:19 Medical Screening Exam initiated 4 08/29 20:43 Differential diagnosis: nonspecific abdominal pain, appendicitis, urinary retention, sp4 Muñoz catheter problem, prostatitis, urethritis. Data reviewed: vital signs, nurses notes. ED course: Positive for basically normal workup. Normal CT. 20:46 ED course: Will go ahead provide prescription for levofloxacin secondary to some sp4 concern for upper respiratory infection.. 08/28 20:43 Order name: CBC with Diff; Complete Time: 00:24 [facility] 08/28 20:43 Order name: CMP; Complete Time: 22:57 [facility] 08/28 20:43 Order name: Lipase; Complete Time: 22:57 [facility] 08/28 20:43 Order name: Urinalysis w/ reflexes; Complete Time: 21:01 [facility] 08/28 20:44 Order name: Troponin High Sensitivity; Complete Time: 22:57 [facility] 08/28 20:44 Order name: Lactate w/ 2H reflex if indic.; Complete Time: 22:56 [facility] 08/28 20:44 Order name: Blood Culture Adult (2) [facility] 08/28 20:44 Order name: CRP; Complete Time: 22:57 [facility] 08/28 21:47 Order name: Urinalysis W/Microscopic; Complete Time: 22:32 [facility] 08/28 20:43 Order name: CT Abd/Pelvis - Without Contrast; Complete Time: 21:42 [facility] 08/28 20:43 Order name: IV Saline Lock; Complete Time: 22:24 sp 08/28 20:43 Order name: Labs collected and sent; Complete Time: 22:24 [facility] 08/28 22:51 Order name: Misc. Order: RECOLLECT LAVENDER; Complete Time: 23:03 rv1 Administered Medications: 08/28 21:30 Drug: LevOfloxacin PO 750 mg PO once Route: PO; 5 22:51 Follow up: Response: No adverse reaction rg5 Disposition Summary: 08/29/24 00:26 Discharge Ordered Notes: Location: Home sp4 Problem: new sp4 Symptoms: have improved sp4 Condition: Stable sp4 Diagnosis - Fever, unspecified sp4 - Acute Febrile Illness, Attention to Abdominal wall Urostomy , Acute Sinusitis sp4 Followup: sp4 - With: Private Physician - When: 7 - 10 days - Reason: Recheck today's complaints Discharge Instructions: - Discharge Summary Sheet sp4 - Sinusitis, Adult, Kcpd-dl-Biys sp4 Forms: - Patient Portal Instructions sp4 Prescriptions: - levofloxacin 500 mg Oral tablet - take 1 tablet ORAL route once daily for 7 days; 7 tablet; Refills: 0, Product sp4 Selection Permitted Signatures: Dispatcher [employer] EDMS Roz Peterson rv1 Bhavesh Erickson MD MD sp4 Rosa Elena Mcdowell RN RN cm10 Manuel Olivia RN RN rg5 Corrections: (The following items were deleted from the chart) 20:44 20:44 CBC+H.LAB.BRZ ordered. EDMS EDMS 20:44 20:44 COMPREHENSIVE METABOLIC PANEL+C.LAB.BRZ ordered. EDMS EDMS 20:44 20:44 LIPASE+C.LAB.BRZ ordered. EDMS EDMS 20:44 20:44 Urinalysis+U.LAB.BRZ ordered. EDMS EDMS 20:44 20:44 Abdomen Pelvis Wo Con+CT.RAD.BRZ ordered. EDMS EDMS
--- NOTE | 2024-08-29 00:27 | ER ---
Nurse's Notes [facility] Name: Len Starkey Age: 83 yrs Sex: Male : 1940 Arrival Date: 08/28/2024 Time: 19:57 Bed 18 Private MD: Diagnosis: Fever, unspecified;Acute Febrile Illness, Attention to Abdominal wall Urostomy , Acute Sinusitis Presentation: 08/28 20:32 Chief complaint: Patient states: Has urostomy and has been having back pain, chills and cm10 feeling lethargic. Coronavirus screen: Client denies travel out of the [place] in the last 14 days. Ebola Screen: Patient denies travel to an Ebola-affected area in the 21 days before illness onset. No symptoms or risks identified at this time. Initial Sepsis Screen: Does the patient meet any 2 criteria? No. Patient's initial sepsis screen is negative. Does the patient have a suspected source of infection? No. Patient's initial sepsis screen is negative. Risk Assessment: Do you want to hurt yourself or someone else? Patient reports no desire to harm self or others. Onset of symptoms was August 27, 2024. 20:32 Method Of Arrival: Ambulatory cm10 20:32 Acuity: DAVID 3 cm10 Triage Assessment: 20:34 General: Appears in no apparent distress. comfortable, Behavior is calm, cooperative. cm10 Pain: Complains of pain in back Pain does not radiate. Pain currently is 2 out of 10 on a pain scale. Neuro: No deficits noted. Level of Consciousness is awake, alert, obeys commands, Oriented to person, place, time, situation, Appropriate for age. Respiratory: No deficits noted. Airway is patent Respiratory effort is even, unlabored, Respiratory pattern is regular, symmetrical. : Urostosmy. 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 - Infectious Disease History:: Denies. - Social history:: Smoking status: Patient denies any tobacco usage or history of. - Family history:: not pertinent. Screenin:35 [facility] ED Fall Risk Assessment (Adult) History of falling in the last 3 months, rg5 including since admission No falls in past 3 months (0 pts) Confusion or Disorientation No (0 pts) Intoxicated or Sedated No (0 pts) Impaired Gait No (0 pts) Mobility Assist Device Used No (0 pt) Altered Elimination Yes (1 pt) Score/Fall Risk Level 0 - 2 = Low Risk Oriented to surroundings, Maintained a safe environment, Hourly rounding (assess needs \T\ fall precautionary measures) done. Abuse screen: Denies threats or abuse. 20:35 Nutritional screening: No deficits noted. Tuberculosis screening: No symptoms or risk rg5 factors identified. Vital Signs: 20:32 BP 162 / 101; Pulse 77; Resp 16; Temp 98.5(O); Pulse Ox 98% ; Weight 72.57 kg; Height 5 cm10 ft. 9 in. ; Pain 2/10; 21:56 BP 178 / 85; Pulse 77; Resp 18; Temp 98.4(O); Pulse Ox 97% on R/A; rg5 22:30 BP 164 / 77; Pulse 77; Resp 17; Pulse Ox 98% on R/A; rg5 23:00 BP 157 / 75; Pulse 78; Resp 17; Pulse Ox 99% on R/A; Pain 0/10; rg5 08/29 00:00 BP 155 / 77; Pulse 77; Resp 17; Temp 98(O); Pain 0/10; rg5 08/28 20:32 Body Mass Index 23.63 (72.57 kg, 175.26 cm) cm10 08/28 20:32 Pain Scale: Adult cm10 23:00 Pain Scale: Adult rg5 08/29 00:00 Pain Scale: Adult rg5 [place] Coma Score: 20:43 Eye Response: spontaneous(4). Motor Response: obeys commands(6). Verbal Response: sp4 oriented(5). Total: 15. ED Course: 08/28 20:01 Patient arrived in ED. ra3 20:10 Bhavesh Erickson MD is Attending Physician. sp4 20:33 Triage completed. cm10 20:33 Arm band placed on left wrist. Patient placed in waiting room. cm10 20:35 Patient has correct armband on for positive identification. Bed in low position. Side rg5 rails up X 1. Door closed. Noise minimized. Verbal reassurance given. 20:35 No provider procedures requiring assistance completed. Inserted saline lock: 18 gauge rg5 in left antecubital area, using aseptic technique. Blood collected. Flushed with 10 mL NS. 20:48 Urinalysis w/ reflexes Sent. cm10 20:48 Urine collected: urostomy bag. cm10 21:00 CT Abd/Pelvis - Without Contrast In Process Unspecified. EDMS 21:55 Manuel Olivia, RN is Primary Nurse. rg5 22:02 Inserted saline lock: 20 gauge in right antecubital area, using aseptic technique. sa1 Blood collected. Flushed with 10 mL NS. 22:02 First set of blood cultures drawn by me. sa1 22:17 Second set of blood cultures drawn by me. sa1 22:24 CRP Sent. sa1 22:24 Blood Culture Adult (2) Sent. sa1 22:24 Lactate w/ 2H reflex if indic. Sent. sa1 22:24 Troponin High Sensitivity Sent. sa1 22:24 CBC with Diff Sent. sa1 22:24 CMP Sent. sa1 22:24 Lipase Sent. sa1 08/29 00:56 Provided Education on: POST ER CARE. rg5 00:56 IV discontinued, bleeding controlled, No redness/swelling at site. Pressure dressing rg5 applied. Administered Medications: 08/28 21:30 Drug: LevOfloxacin PO 750 mg PO once Route: PO; rg5 22:51 Follow up: Response: No adverse reaction rg5 Medication: 21:00 VIS not applicable for this client. rg5 Outcome: 08/29 00:26 Discharge ordered by . sp4 00:56 Discharged to home via ambulance, rg5 00:56 Condition: good 00:56 Discharge instructions given to patient, Instructed on discharge instructions, follow up and referral plans. Demonstrated understanding of instructions, follow-up care, medications, Prescriptions given X 1, 00:57 Patient left the ED. rg5 Signatures: Dispatcher [employer] EDMS Bhavesh Erickson MD MD sp4 Rosa Elena Mcdowell RN RN cm10 Yulia Rob ra3 Manuel Olivia, RN RN rg5 Sultan Yamilet sa1 Corrections: (The following items were deleted from the chart) 08/28 22:23 22:21 Inserted saline lock: 20 gauge in right antecubital area, using aseptic sa1 technique. Blood collected. Flushed with 10 mL NS [facility] 22:02 First set of blood cultures drawn
[2024-08-29 01:25] VITALS: O2SAT 99
[2024-08-29 01:26] VITALS: BP 155/77; TEMP 98
== END 2024-08-29 00:57 | disposition home or self-care (01) ==
LOC: ER 19:57
DX: J01.90 Acute sinusitis, unspecified (principal); Z43.6 Encounter for attention to other artificial openings of urinary tract; Z85.51 Personal history of malignant neoplasm of bladder
CPT/HCPCS: 36415; 74176; 80053; 81001; 81003; 83605; 83690; 84484; 85025; 86140; 87040; 99284

== ENCOUNTER 2025-05-23 23:11 | Emergency (ER) | payer OTHER ==
[2025-05-24 01:14] LABS: Urine Microscopic Reflex YN NO UMIC
--- NOTE | 2025-05-24 01:25 | ER ---
Nurse's Notes [facility] Name: Len Starkey Age: 84 yrs Sex: Male : 1940 Arrival Date: 05/23/2025 Time: 23:11 Bed 4 Private MD: Omega Sparks V Diagnosis: Attention to Abdominal Wall Urostomy;UTI/ Urinary tract infection, site not specified Presentation: 05/23 23:50 Chief complaint: Patient states: I haven't self cathed in about 8 months, MD Hebert vc1 told me to start doing it once a week again and I can't get the catheter in. It has been obstructed in the past but usually I can get it in. Coronavirus screen: Client denies travel out of the [place] in the last 14 days. At this time, the client does not indicate any symptoms associated with coronavirus-19. Ebola Screen: Patient negative for fever greater than or equal to 101.5 degrees Fahrenheit, and additional compatible Ebola Virus Disease symptoms Patient denies exposure to infectious person. Patient denies travel to an Ebola-affected area in the 21 days before illness onset. No symptoms or risks identified at this time. Initial Sepsis Screen: Does the patient meet any 2 criteria? No. Patient's initial sepsis screen is negative. Does the patient have a suspected source of infection? No. Patient's initial sepsis screen is negative. Risk Assessment: Do you want to hurt yourself or someone else? Patient reports no desire to harm self or others. Onset of symptoms was May 23, 2025. 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 - Infectious Disease History:: Denies. - Social history:: Smoking status: Patient denies any tobacco usage or history of. Screenin:55 [facility] ED Fall Risk Assessment (Adult) History of falling in the last 3 months, vc1 including since admission No falls in past 3 months (0 pts) Confusion or Disorientation No (0 pts) Intoxicated or Sedated No (0 pts) Impaired Gait No (0 pts) Mobility Assist Device Used No (0 pt) Altered Elimination Yes (1 pt) Score/Fall Risk Level 0 - 2 = Low Risk Oriented to surroundings, Maintained a safe environment, Educated pt \T\ family on fall prevention, incl call for assistance when getting out of bed, Assessed \T\ reinforced patient's understanding of fall precautions, Hourly rounding (assess needs \T\ fall precautionary measures) done. Abuse screen: Denies threats or abuse. Nutritional screening: No deficits noted. Tuberculosis screening: No symptoms or risk factors identified. Assessment: 23:58 General: Appears in no apparent distress. uncomfortable, Behavior is calm, cooperative, cp4 appropriate for age. Pain: Denies pain. Neuro: Level of Consciousness is awake, alert, obeys commands, Oriented to person, place, time, situation. Cardiovascular: Patient's skin is warm and dry. Respiratory: Airway is patent Respiratory effort is even, unlabored. GI: No signs and/or symptoms were reported involving the gastrointestinal system. : Reports Unable to straight cath. EENT: No signs and/or symptoms were reported regarding the EENT system. Derm: No signs and/or symptoms reported regarding the dermatologic system. Musculoskeletal: No signs and/or symptoms reported regarding the musculoskeletal system. Vital Signs: 23:50 Weight 70.31 kg; Height 5 ft. 9 in. ; vc1 05/24 00:56 BP 177 / 86; Pulse 50; Resp 18; Pulse Ox 98% ; cp4 05/23 23:50 Body Mass Index 22.89 (70.31 kg, 175.26 cm) vc1 ED Course: 05/23 23:12 Patient arrived in ED. jj6 23:13 Omega Sparks MD is Private Physician. jj6 23:16 Eamon Paul PA-C is PHCP. cp 23:16 Eamon Hebert MD is Attending Physician. cp 23:52 Triage completed. vc1 23:55 Arm band placed on right wrist. vc1 23:55 Patient has correct armband on for positive identification. Bed in low position. Call vc1 light in reach. Provided Education on: Plan of care. 23:56 Pt given 14F coude to which he self cathed and achieved drainage. Patient did not have vc1 IV access during this emergency room visit. 23:58 Lizzette Duarte is Primary Nurse. cp4 23:58 No provider procedures requiring assistance completed. Patient did not have IV access cp4 during this emergency room visit. 05/24 00:56 Urine collected: straight cath specimen, cloudy, blood tinged. cp4 Administered Medications: 01:27 Not Given (Patient Refused): rocephin (ceftriaxone)1 grams IM once cp Medication: 05/23 23:55 VIS not applicable for this client. vc1 Outcome: 05/24 01:24 Discharge ordered by MD. cp 01:32 Discharged to home ambulatory, cp4 01:32 Condition: stable 01:32 Discharge instructions given to patient, Instructed on discharge instructions, follow up and referral plans. medication usage, Demonstrated understanding of instructions, follow-up care, medications, Prescriptions given X 1, 01:33 Patient left the ED. cp4 Signatures: Eamon Paul PA-C PA-C cp Jeffries, Jennifer jj6 Edith Higginbotham RN RN vc1 Lizzette Duarte cp4
--- NOTE | 2025-05-24 01:25 | EDPHYS ---
Physician Documentation [facility] Name: Len Starkey Age: 84 yrs Sex: Male : 1940 Arrival Date: 05/23/2025 Time: 23:11 Bed 4 Private MD: Omega Sparks V ED Physician Eamon Hebert HPI: 05/23 23:50 This 84 yrs old Male presents to ER via Ambulatory with complaints of Problem With cp Urinary Catheter. 23:50 Patient is a 84-year-old male with past medical history significant for bladder cancer cp that required surgical revision with urostomy placement. Patient reports he has been unable to pass a catheter through his urostomy and so he presents to the emergency department requesting assistance. 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 - Infectious Disease History:: Denies. - Social history:: Smoking status: Patient denies any tobacco usage or history of. ROS: 23:55 Constitutional: Negative for body aches, chills, fever, cp 23:55 Eyes: Negative for injury, pain, redness, and discharge, cp 23:55 Cardiovascular: Negative for chest pain, palpitations, 23:55 Respiratory: Negative for cough, shortness of breath, wheezing, 23:55 Abdomen/GI: Negative for abdominal pain, vomiting, diarrhea, constipation, 23:55 Neuro: Negative for altered mental status, dizziness, headache, weakness, 23:55 All other systems are negative, Exam: 23:59 Constitutional: The patient appears in no acute distress, alert, awake, comfortable, cp non-toxic, well developed, well nourished, 23:59 Head/Face: Normocephalic, atraumatic. cp 23:59 Chest/axilla: Inspection: normal, 23:59 Cardiovascular: Rate: bradycardic, 23:59 Respiratory: the patient does not display signs of respiratory distress, Respirations: normal, no use of accessory muscles, no retractions, labored breathing, is not present, Breath sounds: are clear throughout, no decreased breath sounds, no stridor, no wheezing, 23:59 Abdomen/GI: Inspection: urostomy noted right lower quadrant of abdomen, Palpation: abdomen is soft and non-tender, in all quadrants, 23:59 Back: pain, is absent, ROM is normal, 23:59 Neuro: Orientation: is normal, Mentation: is normal, Motor: moves all fours, strength is normal, Gait: is steady, at a normal pace, without difficulty, Vital Signs: 23:50 Weight 70.31 kg; Height 5 ft. 9 in. ; vc1 05/24 00:56 BP 177 / 86; Pulse 50; Resp 18; Pulse Ox 98% ; cp4 05/23 23:50 Body Mass Index 22.89 (70.31 kg, 175.26 cm) vc1 MDM: 05/23 23:47 Medical Screening Exam initiated [facility] 05/24 01:24 Data reviewed: vital signs, nurses notes, lab test result(s), and as a result, I will cp discharge patient. 01:24 Differential diagnosis: UTI, sepsis, pyelonephritis, obstructed urostomy. Care cp significantly affected by the following chronic conditions: Cancer. Counseling: I had a detailed discussion with the patient and/or guardian regarding the historical points, exam findings, and any diagnostic results supporting the discharge/admit diagnosis, lab results, to return to the emergency department if symptoms worsen or persist or if there are any questions or concerns that arise at home. ED course: patient given hernandez in Ed by nursing staff and able to pass hernandez through urostomy. will discharge to home for continued monitoring. 05/23 23:55 Order name: UA Rfx Siva Cult if indicated; Complete Time: 01:20 cp 05/24 01:21 Interpretation: Reviewed. cp Administered Medications: 01:27 Not Given (Patient Refused): rocephin (ceftriaxone)1 grams IM once cp Disposition: 03:27 Co-signature as Attending Physician, Eamon Hebert MD I agree with the assessment and [facility] plan of care. Disposition Summary: 05/24/25 01:24 Discharge Ordered Notes: Location: Home cp Problem: new cp Symptoms: have improved cp Condition: Stable cp Diagnosis - Attention to Abdominal Wall Urostomy cp - UTI/ Urinary tract infection, site not specified cp Followup: cp - With: Private Physician - When: 2 - 3 days - Reason: Worsening of condition Discharge Instructions: - Discharge Summary Sheet cp - Urinary Tract Infection, Adult cp - Continent Urostomy Home Guide cp Forms: - Medication Reconciliation Form cp - Antibiotic Education cp - Prescription Opioid Use cp - Patient Portal Instructions cp - Leadership Thank You Letter cp Prescriptions: - cefpodoxime 200 mg Oral tablet - take 1 tablet ORAL route every 12 hours for 7 days with food; 14 tablet; cp Refills: 0, Product Selection Permitted Signatures: Dispatcher [employer] EDEamon Boykin MD MD cha Page, Corey, PA-C PA-C Edith Ro RN RN vc1 Corrections: (The following items were deleted from the chart) 05/23 23:55 23:55 UA Rfx Siva Cult if indicated+[email or web address].LAB.BRZ ordered. EDNC EDNC
[2025-05-24 01:36] VITALS: BP 177/86; O2SAT 98
== END 2025-05-24 01:33 | disposition home or self-care (01) ==
LOC: ER 23:11
DX: Z43.5 Encounter for attention to cystostomy (principal); N39.0 Urinary tract infection, site not specified; Z85.51 Personal history of malignant neoplasm of bladder
CPT/HCPCS: 81003; 99283